=== PATIENT | female | born 1935 | race African-American/Black ===

== ENCOUNTER 2017-06-21 03:45 | Emergency (ER) | payer OTHER, MEDICAID ==
[~2017-06-21] VITALS: Ht 167.6 cm; Wt 77.1 kg
[2017-06-21 04:41] LABS: Basophils # (auto) 0 uL; Basophils % (auto) 0.5 % (0.0-2.0); Eosinophils # (auto) 0.2 uL; Hematocrit 32.8 % (36.0-46.0); Hemoglobin 10.7 g/dL (12.2-16.2); Lymphocytes # (auto) 1.5 uL; Lymphocytes % (auto) 17.9 % (10.0-50.0); Mean Corpuscular Hemoglobin 29.7 pg (28.0-32.0); Mean Corpuscular Hgb Conc. 32.5 g/dL (32.0-36.0); Mean Corpuscular Volume 91.3 fL (80.0-100.0); Monocytes # (auto) 0.7 uL; Monocytes % (auto) 8.1 % (0.0-12.0); Neutrophils # (auto) 5.9 uL; Neutrophils % (auto) 70.5 % (37.0-80.0); Platelet Count (auto) 181 10^3/uL (140-450); Red Blood Cells 3.59 10^6/uL (4.0-5.20); Red Cell Distribution Width 14.8 % (11.8-14.3); White Blood Cell 8.4 10^3/uL (4.4-10.8)
[2017-06-21 04:57] LABS: INR 1.16 (0.9-1.15); Partial Thromboplastin Time 46.1 sec (22.64-33.71); Prothrombin Time 12.7 sec (9.37-12.3)
[2017-06-21 05:00] LABS: Albumin 3.5 g/dL (3.4-5.0); BUN/Creatinine Ratio 24.4; Bilirubin, Total 0.3 mg/dL (0.2-1.0); Calcium 8.7 mg/dL (8.5-10.1); Magnesium 2.2 mg/dL (1.6-2.6); Potassium 4.3 mmol/L (3.5-5.1); Total Protein 7.5 g/dL (6.4-8.2)
[2017-06-21 05:06] LABS: Urine Bacteria FEW /hpf (None Seen); Urine Blood TRACE /uL (Negative); Urine Hyaline Cast FEW /lpf (0 - 2); Urine Specific Gravity 1.008 (1.001-1.035); Urine WBC 6 /hpf (0 - 5)
[2017-06-21] MEDS ORDERED: MET50T PO (07:51)
[2017-06-21] MEDS ORDERED: METF-370 PO (07:51)
[2017-06-21] MEDS ORDERED: BACL20TA PO (07:52)
[2017-06-21] MEDS ORDERED: ATOR1TAB PO (07:53)
[2017-06-21] MEDS ORDERED: HYDR12.56 PO (07:53)
[2017-06-21] MEDS ORDERED: POTA1TAB4 PO (07:54)
[2017-06-21] MEDS ORDERED: ASPI-231 PO (07:55)
[2017-06-21] MEDS ORDERED: OMEP20TA PO (07:55)
[2017-06-21] MEDS ORDERED: cloNIDine HCL 0.1 MG TAB PO ONE (08:15)
[2017-06-21] MEDS ORDERED: FUROSEMIDE 20 MG/2 ML VIAL IV ONE (08:45)
[2017-06-21] MEDS ORDERED: METOPROLOL TARTRATE 25 MG TAB PO ONE (08:45)
[2017-06-21] MEDS ORDERED: ASPirin 81 mg TAB PO ONE (10:45)
[2017-06-21] MEDS ORDERED: cefTRIAXone 1GM/10ml IVPUSH 10 ML IV ONE (10:45)
[2017-06-21 15:47] VITALS: BP 151/72
== END 2017-06-21 16:35 | disposition short-term general hospital (02) ==
LOC: ER 03:45
DX: I11.0 Hypertensive heart disease with heart failure (principal); I50.9 Heart failure, unspecified; R74.8 Abnormal levels of other serum enzymes; Z95.0 Presence of cardiac pacemaker; Z79.899 Other long term (current) drug therapy
CPT/HCPCS: 36415; 71045; 80053; 81001; 83735; 83880; 84443; 84484; 85025; 85610; 85730; 93005; 96374; 96375; 99291; J1940

== ENCOUNTER 2017-07-03 13:12 | Emergency (ER) | payer OTHER, MEDICAID ==
[~2017-07-03] VITALS: Ht 154.9 cm; Wt 66.2 kg
[~2017-07-03 13:12] MED LIST: ASPI-231 PO; ATOR1TAB PO; BACL20TA PO; HYDR12.56 PO; MET50T PO; METF-370 PO; OMEP20TA PO; POTA1TAB4 PO
[2017-07-03 14:56] LABS: Basophils # (auto) 0 uL; Basophils % (auto) 0.5 % (0.0-2.0); Eosinophils # (auto) 0.4 uL; Eosinophils % (auto) 6.2 % (0.0-7.0); Hematocrit 34.2 % (36.0-46.0); Hemoglobin 11.2 g/dL (12.2-16.2); Lymphocytes # (auto) 0.9 uL; Lymphocytes % (auto) 16.3 % (10.0-50.0); Mean Corpuscular Hemoglobin 29.6 pg (28.0-32.0); Mean Corpuscular Hgb Conc. 32.7 g/dL (32.0-36.0); Mean Corpuscular Volume 90.5 fL (80.0-100.0); Monocytes # (auto) 0.6 uL; Monocytes % (auto) 10.4 % (0.0-12.0); Neutrophils # (auto) 3.7 uL; Neutrophils % (auto) 66.6 % (37.0-80.0); Platelet Count (auto) 186 10^3/uL (140-450); Red Blood Cells 3.78 10^6/uL (4.0-5.20); Red Cell Distribution Width 14.7 % (11.8-14.3); White Blood Cell 5.6 10^3/uL (4.4-10.8)
[2017-07-03 15:19] LABS: Albumin 3.8 g/dL (3.4-5.0); BUN/Creatinine Ratio 20.7; Calcium 9.1 mg/dL (8.5-10.1); Potassium 4.5 mmol/L (3.5-5.1)
[2017-07-03 15:24] LABS: Bilirubin, Total 0.3 mg/dL (0.2-1.0); Total Protein 8.4 g/dL (6.4-8.2)
[2017-07-03] MEDS ORDERED: METOCLOPRAMIDE HCL 5MG/ml INJ 2ml VIAL IV ONE (15:30)
[2017-07-03 16:05] LABS: INR 1.05 (0.9-1.15); Partial Thromboplastin Time 46.9 sec (22.64-33.71); Prothrombin Time 11.5 sec (9.37-12.3)
[2017-07-03 20:35] VITALS: BP 156/65
== END 2017-07-03 20:51 | disposition short-term general hospital (02) ==
LOC: ER 13:15
DX: R79.89 Other specified abnormal findings of blood chemistry (principal); R00.2 Palpitations; R53.1 Weakness; E87.8 Other disorders of electrolyte and fluid balance, not elsewhere classified; J45.909 Unspecified asthma, uncomplicated; I10 Essential (primary) hypertension; E11.9 Type 2 diabetes mellitus without complications; E78.5 Hyperlipidemia, unspecified; E07.9 Disorder of thyroid, unspecified; Z79.82 Long term (current) use of aspirin; Z95.0 Presence of cardiac pacemaker
CPT/HCPCS: 36415; 71046; 80053; 83735; 84484; 85025; 85610; 85730; 93005; 94761; 96374; 99291; J2765

== ENCOUNTER 2017-07-20 01:41 | Emergency (ER) | payer OTHER, MEDICAID ==
[~2017-07-20] VITALS: Ht 160 cm; Wt 72.6 kg
[2017-07-20 02:40] LABS: Basophils # (auto) 0 uL; Basophils % (auto) 0.4 % (0.0-2.0); Eosinophils # (auto) 0.2 uL; Eosinophils % (auto) 2.1 % (0.0-7.0); Hematocrit 32.7 % (36.0-46.0); Hemoglobin 10.6 g/dL (12.2-16.2); Lymphocytes # (auto) 1.3 uL; Lymphocytes % (auto) 15.5 % (10.0-50.0); Mean Corpuscular Hemoglobin 29.3 pg (28.0-32.0); Mean Corpuscular Hgb Conc. 32.5 g/dL (32.0-36.0); Mean Corpuscular Volume 90.2 fL (80.0-100.0); Monocytes # (auto) 0.6 uL; Monocytes % (auto) 7.1 % (0.0-12.0); Neutrophils # (auto) 6.4 uL; Neutrophils % (auto) 74.9 % (37.0-80.0); Platelet Count (auto) 166 10^3/uL (140-450); Red Blood Cells 3.62 10^6/uL (4.0-5.20); Red Cell Distribution Width 14.6 % (11.8-14.3); White Blood Cell 8.5 10^3/uL (4.4-10.8)
[2017-07-20 03:04] LABS: Albumin 3.3 g/dL (3.4-5.0); Calcium 9.2 mg/dL (8.5-10.1); Potassium 3.9 mmol/L (3.5-5.1)
[2017-07-20 03:06] LABS: BUN/Creatinine Ratio 22.4
[2017-07-20 03:11] LABS: Bilirubin, Total 0.2 mg/dL (0.2-1.0); Total Protein 7.6 g/dL (6.4-8.2)
[2017-07-20] MEDS ORDERED: IOHEXOL 300 MG/ML 100ML BOTTLE IJ ONE (03:47)
[2017-07-20 04:03] LABS: Urine Bacteria NONE SEEN /hpf (None Seen); Urine Blood Negative /uL (Negative); Urine Specific Gravity 1.012 (1.001-1.035); Urine WBC 1 /hpf (0 - 5)
[2017-07-20] MEDS ORDERED: KETOROLAC TROMETH 30 MG/ML 1ML VIAL IV ONE (04:45)
[2017-07-20 09:06] VITALS: BP 145/74
== END 2017-07-20 09:12 | disposition short-term general hospital (02) ==
LOC: ER 01:41 → EDBD 01:41 → ER 09:12
DX: R00.2 Palpitations (principal); N39.0 Urinary tract infection, site not specified; R79.89 Other specified abnormal findings of blood chemistry; J45.909 Unspecified asthma, uncomplicated; I10 Essential (primary) hypertension; E11.9 Type 2 diabetes mellitus without complications; R06.02 Shortness of breath; E78.5 Hyperlipidemia, unspecified; Z79.82 Long term (current) use of aspirin; Z95.0 Presence of cardiac pacemaker; Z95.2 Presence of prosthetic heart valve
CPT/HCPCS: 36415; 71045; 74177; 80053; 81001; 83735; 83880; 84484; 85025; 93005; 94761; 96374; 99285; J1885; Q9967

== ENCOUNTER 2017-07-28 04:54 | Emergency (ER) | payer OTHER, MEDICAID ==
[~2017-07-28] VITALS: Ht 162.6 cm; Wt 68.0 kg
[2017-07-28 07:04] LABS: Basophils # (auto) 0 uL; Basophils % (auto) 0.5 % (0.0-2.0); Eosinophils # (auto) 0 uL; Eosinophils % (auto) 0.6 % (0.0-7.0); Hematocrit 35.6 % (36.0-46.0); Hemoglobin 11.7 g/dL (12.2-16.2); Lymphocytes # (auto) 0.7 uL; Mean Corpuscular Hemoglobin 29.7 pg (28.0-32.0); Mean Corpuscular Hgb Conc. 32.8 g/dL (32.0-36.0); Mean Corpuscular Volume 90.6 fL (80.0-100.0); Monocytes # (auto) 0.3 uL; Monocytes % (auto) 5.1 % (0.0-12.0); Neutrophils # (auto) 5.7 uL; Neutrophils % (auto) 83.8 % (37.0-80.0); Platelet Count (auto) 213 10^3/uL (140-450); Red Blood Cells 3.93 10^6/uL (4.0-5.20); Red Cell Distribution Width 14.8 % (11.8-14.3); White Blood Cell 6.8 10^3/uL (4.4-10.8)
[2017-07-28 07:20] VITALS: BP 178/92
[2017-07-28] MEDS ORDERED: HYDROcodone-ACET 10/325MG TAB PO ONE (08:00)
[2017-07-28] MEDS ORDERED: cloNIDine HCL 0.1 MG TAB PO ONE (08:00)
[2017-07-28 08:04] LABS: Urine Bacteria FEW /hpf (None Seen); Urine Blood Negative /uL (Negative); Urine Specific Gravity 1.009 (1.001-1.035); Urine WBC 4 /hpf (0 - 5)
[2017-07-28 09:02] LABS: Albumin 3.5 g/dL (3.4-5.0); BUN/Creatinine Ratio 14.4; Bilirubin, Total 0.3 mg/dL (0.2-1.0); Calcium 8.9 mg/dL (8.5-10.1); Potassium 3.8 mmol/L (3.5-5.1); Total Protein 7.8 g/dL (6.4-8.2)
== END 2017-07-28 08:41 | disposition home or self-care (01) ==
LOC: ER 04:54 → EDBD 04:54 → ER 08:41
DX: I10 Essential (primary) hypertension (principal); N39.0 Urinary tract infection, site not specified; J45.909 Unspecified asthma, uncomplicated; E11.9 Type 2 diabetes mellitus without complications; E78.5 Hyperlipidemia, unspecified; E07.9 Disorder of thyroid, unspecified; Z95.0 Presence of cardiac pacemaker; Z79.899 Other long term (current) drug therapy
CPT/HCPCS: 36415; 80053; 81001; 84484; 85025

== ENCOUNTER 2017-07-31 03:04 | Inpatient (IN) | payer OTHER, MEDICAID ==
[~2017-07-31] VITALS: Ht 165.1 cm; Wt 68.4 kg
[2017-07-31] MEDS ORDERED: LABETALOL HCL 5 MG/ML ML 20ML VIAL IV ONE ×2 (04:15→05:30)
[2017-07-31] MEDS ORDERED: ASPirin 325 MG TAB PO ONE (04:15)
[2017-07-31 04:21] LABS: Basophils # (auto) 0 uL; Basophils % (auto) 0.3 % (0.0-2.0); Eosinophils # (auto) 0.2 uL; Eosinophils % (auto) 2.4 % (0.0-7.0); Hemoglobin 11.7 g/dL (12.2-16.2); Lymphocytes # (auto) 1.3 uL; Lymphocytes % (auto) 20.5 % (10.0-50.0); Mean Corpuscular Hemoglobin 29.6 pg (28.0-32.0); Mean Corpuscular Hgb Conc. 32.5 g/dL (32.0-36.0); Mean Corpuscular Volume 91.1 fL (80.0-100.0); Monocytes # (auto) 0.7 uL; Monocytes % (auto) 10.4 % (0.0-12.0); Neutrophils # (auto) 4.4 uL; Neutrophils % (auto) 66.4 % (37.0-80.0); Nucleated Red Blood Cells % 0.1 %; Platelet Count (auto) 235 10^3/uL (140-450); Red Blood Cells 3.95 10^6/uL (4.0-5.20); Red Cell Distribution Width 15.1 % (11.8-14.3); White Blood Cell 6.6 10^3/uL (4.4-10.8)
[2017-07-31 04:39] LABS: Albumin 3.6 g/dL (3.4-5.0); BUN/Creatinine Ratio 15.9; Potassium 3.7 mmol/L (3.5-5.1)
[2017-07-31 04:43] LABS: Bilirubin, Total 0.2 mg/dL (0.2-1.0); Total Protein 7.9 g/dL (6.4-8.2)
[2017-07-31] MEDS ORDERED: ONDANSETRON HCL 4 MG/2 ML VIAL IV ONE (06:15)
[2017-07-31] MEDS ORDERED: hydrALAZINE HCL 20 MG/ML VL IV ONE (07:15)
[2017-07-31] MEDS ORDERED: cloNIDine HCL 0.1 MG TAB PO ONE (07:30)
[2017-07-31] MEDS ORDERED: POTASSIUM CHL 20 Meq TABLET PO ONE (10:45)
[2017-07-31] MEDS ORDERED: ALUM & MAG HYDROX-SIMETH LIQ(MAALOX) 30 ML PO ONE (10:45)
[2017-07-31] MEDS ORDERED: HCTZ 25 MG TAB PO ONE (10:45)
[2017-07-31] MEDS ORDERED: NITROGLYCERIN 0.4 MG SL TAB SL PRN ×2 (10:45)
[2017-07-31] MEDS ORDERED: DEXTROSE (50%) 50ML SYRG IV PRN (10:45)
[2017-07-31] MEDS ORDERED: ZOLPIDEM TARTRATE 5 MG TAB PO PRN (10:45)
[2017-07-31] MEDS ORDERED: ACETAMINOPHEN 325 MG TAB PO PRN (10:45)
[2017-07-31] MEDS ORDERED: PANTOPRAZOLE 40 MG TAB PO ONE (10:45)
[2017-07-31] MEDS ORDERED: MORPHINE SULF(PF) 0.5MG/ML 10ML VIAL IV PRN ×2 (10:45)
[2017-07-31] MEDS ORDERED: ONDANSETRON HCL 4 MG/2 ML VIAL IV PRN (10:45)
[2017-07-31] MEDS ORDERED: LORazepam 0.5 MG TAB PO PRN (10:45)
[2017-07-31] MEDS: METOPROLOL TARTRATE 50 MG TAB PO SCH ×3 (11:00→22:11)
[2017-07-31 11:11] LABS: INR 1.12 (0.9-1.15); Prothrombin Time 11.9 sec (9.27-12.13)
[2017-07-31] MEDS: ENALAPRIL MALEATE 2.5 MG TAB PO SCH ×2 (11:15→22:11)
[2017-07-31] MEDS: CLOPIDOGREL BISULFATE 75 MG TAB PO SCH (11:23)
[2017-07-31] MEDS: DABIGATRAN 75 MG CAP PO SCH ×2 (11:23→22:10)
[2017-07-31] MEDS: SULFAMETHOX W/TRIMETH(800/160MG) DS TAB PO SCH (11:23)
[2017-07-31] MEDS: InsuLIN REG 1unit/0.01ml Soln (100units/ml) SC SCH ×3 (11:53→22:14)
[2017-07-31] MEDS: SODIUM CHLOR 0.9% PF (SALINE LOCK) 10ML VIAL/SYR IV SCH ×2 (11:53→22:12)
[2017-07-31] MEDS: ACCU-CHEK COMFORT CURVE STRIP VI SCH ×3 (11:53→22:12)
[2017-07-31] MEDS ORDERED: SODIUM CHLORIDE 0.9% 1,000 ML IV ONE (12:15)
[2017-07-31] MEDS ORDERED: NOREPINEPHRINE 8 MG/250ML KIT 250 ML IV SCH (13:08)
[2017-07-31 22:00] VITALS: BP 143/64
[2017-07-31] MEDS: ATORVASTATIN 20 MG TAB PO SCH (22:11)
[2017-08-01 05:00] VITALS: BP 102/63
[2017-08-01] MEDS: SODIUM CHLOR 0.9% PF (SALINE LOCK) 10ML VIAL/SYR IV SCH ×3 (06:24→22:03)
[2017-08-01] MEDS: ACCU-CHEK COMFORT CURVE STRIP VI SCH ×4 (06:24→22:05)
[2017-08-01] MEDS: InsuLIN REG 1unit/0.01ml Soln (100units/ml) SC SCH ×4 (06:25→22:05)
[2017-08-01 06:51] LABS: Basophils # (auto) 0 uL; Basophils % (auto) 0.4 % (0.0-2.0); Eosinophils # (auto) 0.3 uL; Eosinophils % (auto) 4.1 % (0.0-7.0); Hematocrit 29.1 % (36.0-46.0); Hemoglobin 9.5 g/dL (12.2-16.2); Lymphocytes # (auto) 1.4 uL; Lymphocytes % (auto) 21.4 % (10.0-50.0); Mean Corpuscular Hemoglobin 29.8 pg (28.0-32.0); Mean Corpuscular Hgb Conc. 32.8 g/dL (32.0-36.0); Mean Corpuscular Volume 90.8 fL (80.0-100.0); Monocytes # (auto) 0.6 uL; Monocytes % (auto) 9.1 % (0.0-12.0); Neutrophils # (auto) 4.1 uL; Nucleated Red Blood Cells % 0.1 %; Platelet Count (auto) 196 10^3/uL (140-450); Red Cell Distribution Width 15.2 % (11.8-14.3); White Blood Cell 6.3 10^3/uL (4.4-10.8)
[2017-08-01 07:11] LABS: Albumin 2.7 g/dL (3.4-5.0); BUN/Creatinine Ratio 14.4; Bilirubin, Total 0.2 mg/dL (0.2-1.0); Calcium 7.9 mg/dL (8.5-10.1); Magnesium 2.2 mg/dL (1.6-2.6); Potassium 4.7 mmol/L (3.5-5.1); Total Protein 5.9 g/dL (6.4-8.2)
[2017-08-01 08:30] VITALS: BP 122/54
[2017-08-01] MEDS: HCTZ 25 MG TAB PO SCH (10:49)
[2017-08-01] MEDS: METOPROLOL TARTRATE 50 MG TAB PO SCH ×2 (10:49→22:04)
[2017-08-01] MEDS: PANTOPRAZOLE 40 MG TAB PO SCH (10:49)
[2017-08-01] MEDS: DABIGATRAN 75 MG CAP PO SCH ×2 (10:49→22:04)
[2017-08-01] MEDS: SULFAMETHOX W/TRIMETH(800/160MG) DS TAB PO SCH (10:50)
[2017-08-01] MEDS: ASPirin 81 mg TAB PO SCH (10:50)
[2017-08-01] MEDS: POTASSIUM CHL 20 Meq TABLET PO SCH (10:50)
[2017-08-01] MEDS: CLOPIDOGREL BISULFATE 75 MG TAB PO SCH (10:50)
[2017-08-01] MEDS: DOCUSATE SOD 100 MG CAP PO SCH (10:50)
[2017-08-01 12:30] VITALS: BP 134/69
[2017-08-01] MEDS: ENALAPRIL MALEATE 2.5 MG TAB PO SCH ×2 (12:55→22:04)
[2017-08-01 16:49] VITALS: BP 137/83
[2017-08-01 22:00] VITALS: BP 158/69
[2017-08-01] MEDS: ATORVASTATIN 20 MG TAB PO SCH (22:03)
[2017-08-02 05:00] VITALS: BP 170/77
[2017-08-02] MEDS: ENALAPRIL MALEATE 2.5 MG TAB PO SCH ×2 (05:19→21:56)
[2017-08-02] MEDS: InsuLIN REG 1unit/0.01ml Soln (100units/ml) SC SCH ×4 (06:01→22:00)
[2017-08-02] MEDS: SODIUM CHLOR 0.9% PF (SALINE LOCK) 10ML VIAL/SYR IV SCH ×3 (06:01→22:04)
[2017-08-02] MEDS: ACCU-CHEK COMFORT CURVE STRIP VI SCH ×4 (06:02→22:01)
[2017-08-02 06:33] LABS: Basophils # (auto) 0 uL; Basophils % (auto) 0.4 % (0.0-2.0); Eosinophils # (auto) 0.3 uL; Eosinophils % (auto) 3.7 % (0.0-7.0); Hemoglobin 11.9 g/dL (12.2-16.2); Lymphocytes # (auto) 1.7 uL; Lymphocytes % (auto) 21.9 % (10.0-50.0); Mean Corpuscular Hemoglobin 29.6 pg (28.0-32.0); Mean Corpuscular Hgb Conc. 31.5 g/dL (32.0-36.0); Mean Corpuscular Volume 94.1 fL (80.0-100.0); Monocytes # (auto) 0.6 uL; Neutrophils # (auto) 5.1 uL; Nucleated Red Blood Cells % 0.1 %; Platelet Count (auto) 216 10^3/uL (140-450); Red Blood Cells 4.03 10^6/uL (4.0-5.20); Red Cell Distribution Width 15.4 % (11.8-14.3); White Blood Cell 7.8 10^3/uL (4.4-10.8)
[2017-08-02 06:47] LABS: Chloride 114 mmol/L (98-107); Potassium 4.6 mmol/L (3.5-5.1); Sodium 144 mmol/L (136-145)
[2017-08-02 06:56] LABS: Albumin 2.9 g/dL (3.4-5.0); Anion Gap 10 (5-15); BUN/Creatinine Ratio 19.4; Blood Urea Nitrogen 20 mg/dL (7-18); Calcium 8.5 mg/dL (8.5-10.1); Carbon Dioxide 20 mmol/L (21-32); GFR African American 66 mL/min; GFR Non-African American 55 mL/min; Glucose 79 mg/dL (74-106)
[2017-08-02 07:02] LABS: Alanine Aminotransferase 18 U/L (13-56); Alkaline Phosphatase 72 U/L (45-117); Aspartate Aminotransferase 25 U/L (15-37); Bilirubin, Total 0.3 mg/dL (0.2-1.0)
[2017-08-02 09:00] VITALS: BP 198/67
[2017-08-02 09:34] LABS: Urine Bacteria NONE SEEN /hpf (None Seen); Urine Blood Negative /uL (Negative); Urine Specific Gravity 1.005 (1.001-1.035); Urine WBC <1 /hpf (0 - 5)
[2017-08-02] MEDS: DOCUSATE SOD 100 MG CAP PO SCH (10:52)
[2017-08-02] MEDS: ASPirin 81 mg TAB PO SCH (10:52)
[2017-08-02] MEDS: SULFAMETHOX W/TRIMETH(800/160MG) DS TAB PO SCH (10:52)
[2017-08-02] MEDS: HCTZ 25 MG TAB PO SCH (10:54)
[2017-08-02] MEDS: POTASSIUM CHL 20 Meq TABLET PO SCH (10:54)
[2017-08-02] MEDS: CLOPIDOGREL BISULFATE 75 MG TAB PO SCH (10:55)
[2017-08-02] MEDS: DABIGATRAN 75 MG CAP PO SCH ×2 (10:55→21:56)
[2017-08-02] MEDS: PANTOPRAZOLE 40 MG TAB PO SCH (10:55)
[2017-08-02] MEDS: METOPROLOL TARTRATE 50 MG TAB PO SCH ×2 (10:55→21:57)
[2017-08-02 13:00] VITALS: BP 187/88
[2017-08-02 18:02] VITALS: BP 183/83
[2017-08-02] MEDS: ATORVASTATIN 20 MG TAB PO SCH (21:57)
[2017-08-02 22:40] VITALS: BP 180/73
[2017-08-03] MEDS ORDERED: METOPROLOL TARTRATE 1MG/1ML-5ML VIAL IV ONE (01:00)
[2017-08-03 02:00] VITALS: BP 165/70
[2017-08-03 05:06] VITALS: BP 194/84
[2017-08-03] MEDS: METOPROLOL TARTRATE 50 MG TAB PO SCH (06:02)
[2017-08-03] MEDS: HCTZ 25 MG TAB PO SCH (06:02)
[2017-08-03] MEDS: ENALAPRIL MALEATE 2.5 MG TAB PO SCH (06:02)
[2017-08-03] MEDS: InsuLIN REG 1unit/0.01ml Soln (100units/ml) SC SCH ×2 (06:09→11:30)
[2017-08-03] MEDS: ACCU-CHEK COMFORT CURVE STRIP VI SCH ×2 (06:09→11:30)
[2017-08-03] MEDS: SODIUM CHLOR 0.9% PF (SALINE LOCK) 10ML VIAL/SYR IV SCH (06:09)
[2017-08-03] MEDS: SULFAMETHOX W/TRIMETH(800/160MG) DS TAB PO SCH (08:20)
[2017-08-03] MEDS: ASPirin 81 mg TAB PO SCH (08:20)
[2017-08-03] MEDS: DOCUSATE SOD 100 MG CAP PO SCH (08:20)
[2017-08-03] MEDS: POTASSIUM CHL 20 Meq TABLET PO SCH (08:21)
[2017-08-03] MEDS: CLOPIDOGREL BISULFATE 75 MG TAB PO SCH (08:21)
[2017-08-03] MEDS: DABIGATRAN 75 MG CAP PO SCH (08:21)
[2017-08-03] MEDS: PANTOPRAZOLE 40 MG TAB PO SCH (08:22)
[2017-08-03 08:41] VITALS: BP 191/77
[2017-08-03] MEDS ORDERED: HYDROcodone-ACET 5/325MG TAB PO ONE (09:30)
[2017-08-03] MEDS ORDERED: cloNIDine HCL 0.1 MG TAB PO PRN (09:30)
[2017-08-03] MEDS ORDERED: HYDROcodone-ACET 5/325MG TAB PO PRN (09:30)
[2017-08-03] MEDS ORDERED: cloNIDine HCL 0.1 MG TAB PO ONE (09:30)
[2017-08-03 11:40] VITALS: BP 196/92
[2017-08-03 11:48] VITALS: BP 102/61
== END 2017-08-03 14:44 | disposition home or self-care (01) | DRG 291 ==
LOC: EDBD 03:04 → ER 03:12 → TELE 03:13 → TELE-CENTR 14:48
PROVIDERS: ADMIT Internal Medicine; ATTEND Family Medicine
DX: I13.0 Hypertensive heart and chronic kidney disease with heart failure and stage 1 through stage 4 chronic kidney disease, or unspecified chronic kidney disease (principal); I50.43 Acute on chronic combined systolic (congestive) and diastolic (congestive) heart failure; N18.3 Chronic kidney disease, stage 3 (moderate); E03.9 Hypothyroidism, unspecified; E11.21 Type 2 diabetes mellitus with diabetic nephropathy; E11.22 Type 2 diabetes mellitus with diabetic chronic kidney disease; E11.51 Type 2 diabetes mellitus with diabetic peripheral angiopathy without gangrene; E78.00 Pure hypercholesterolemia, unspecified; E78.5 Hyperlipidemia, unspecified; R74.8 Abnormal levels of other serum enzymes; R07.89 Other chest pain; G96.8 Other specified disorders of central nervous system; G89.29 Other chronic pain; M54.9 Dorsalgia, unspecified; J45.909 Unspecified asthma, uncomplicated; Z82.49 Family history of ischemic heart disease and other diseases of the circulatory system; Z83.3 Family history of diabetes mellitus; Z86.73 Personal history of transient ischemic attack (TIA), and cerebral infarction without residual deficits; Z95.0 Presence of cardiac pacemaker; Z95.2 Presence of prosthetic heart valve; Z79.899 Other long term (current) drug therapy; I25.2 Old myocardial infarction
CPT/HCPCS: 36415; 70450; 71045; 80053; 80061; 81001; 82962; 83036; 83735; 83880; 84443; 84484; 85025; 85610; 93005; 93306; 96374; 96375; J1815; J2405

== ENCOUNTER 2017-12-15 07:17 | Emergency (ER) | payer OTHER, MEDICAID ==
[~2017-12-15] VITALS: Ht 165.1 cm; Wt 58.1 kg
[2017-12-15 07:55] LABS: Basophils # (auto) 0.1 uL; Basophils % (auto) 0.6 % (0.0-2.0); Eosinophils # (auto) 0.4 uL; Eosinophils % (auto) 4.1 % (0.0-7.0); Hematocrit 27.1 % (36.0-46.0); Hemoglobin 8.8 g/dL (12.2-16.2); Lymphocytes # (auto) 1.5 uL; Lymphocytes % (auto) 16.4 % (10.0-50.0); Mean Corpuscular Hemoglobin 29.3 pg (28.0-32.0); Mean Corpuscular Hgb Conc. 32.3 g/dL (32.0-36.0); Mean Corpuscular Volume 90.6 fL (80.0-100.0); Monocytes # (auto) 0.6 uL; Neutrophils # (auto) 6.9 uL; Neutrophils % (auto) 72.9 % (37.0-80.0); Platelet Count (auto) 206 10^3/uL (140-450); White Blood Cell 9.4 10^3/uL (4.4-10.8)
[2017-12-15] MEDS ORDERED: SODIUM CHLORIDE 0.9% 1,000 ML IV ONE (08:04)
[2017-12-15 08:11] LABS: Albumin 3.5 g/dL (3.4-5.0); Calcium 8.4 mg/dL (8.5-10.1); Magnesium 2.3 mg/dL (1.6-2.6); Potassium 3.9 mmol/L (3.5-5.1)
[2017-12-15] MEDS ORDERED: ASPirin 81 mg TAB PO ONE (08:15)
[2017-12-15 08:18] LABS: BUN/Creatinine Ratio 23.2; Bilirubin, Total 0.3 mg/dL (0.2-1.0); Total Protein 7.5 g/dL (6.4-8.2)
[2017-12-15 15:39] LABS: Urine Bacteria NONE SEEN /hpf (None Seen); Urine Blood Negative /uL (Negative); Urine Mucus FEW (None Seen); Urine Specific Gravity 1.007 (1.001-1.035); Urine WBC 1 /hpf (0 - 5)
[2017-12-15 18:55] VITALS: BP 145/72
== END 2017-12-15 19:58 | disposition home or self-care (01) ==
LOC: ER 07:17 → EDBD 07:17 → ER 19:56
DX: R07.9 Chest pain, unspecified (principal); E11.21 Type 2 diabetes mellitus with diabetic nephropathy; I12.9 Hypertensive chronic kidney disease with stage 1 through stage 4 chronic kidney disease, or unspecified chronic kidney disease; N18.9 Chronic kidney disease, unspecified; J45.909 Unspecified asthma, uncomplicated; E78.5 Hyperlipidemia, unspecified; E07.9 Disorder of thyroid, unspecified; D64.9 Anemia, unspecified; Z79.82 Long term (current) use of aspirin; Z79.84 Long term (current) use of oral hypoglycemic drugs; Z79.899 Other long term (current) drug therapy; Z95.0 Presence of cardiac pacemaker
CPT/HCPCS: 36415; 71046; 80053; 81001; 82962; 83735; 83880; 84443; 84484; 85025; 93005; 94761; 99285; J7030

== ENCOUNTER 2018-01-02 12:33 | Emergency (ER) | payer OTHER, MEDICAID ==
[~2018-01-02] VITALS: Ht 167.6 cm; Wt 63.5 kg
[2018-01-02] MEDS ORDERED: SODIUM CHLORIDE 0.9% 1,000 ML IV ONE (13:41)
[2018-01-02] MEDS ORDERED: LEVOFLOXACIN 500 MG/100 ML PREMIX BAG IV ONE (13:45)
[2018-01-02 14:10] LABS: Eosinophils # (auto) 0.4 uL; Hemoglobin 7.4 g/dL (12.2-16.2); Lymphocytes # (auto) 1.9 uL
[2018-01-02 14:12] LABS: Basophils # (auto) 0.1 uL; Basophils % (auto) 1.3 % (0.0-2.0); Eosinophils % (auto) 4.7 % (0.0-7.0); Hematocrit 23.1 % (36.0-46.0); Lymphocytes % (auto) 23.9 % (10.0-50.0); Mean Corpuscular Hgb Conc. 32.2 g/dL (32.0-36.0); Monocytes # (auto) 0.6 uL; Monocytes % (auto) 8.1 % (0.0-12.0); Nucleated Red Blood Cells % 0.1 %; Platelet Count (auto) 221 10^3/uL (140-450); Red Blood Cells 2.57 10^6/uL (4.0-5.20); Red Cell Distribution Width 14.9 % (11.8-14.3); White Blood Cell 8.1 10^3/uL (4.4-10.8)
[2018-01-02 14:44] LABS: Albumin 3.6 g/dL (3.4-5.0); Calcium 8.7 mg/dL (8.5-10.1); Potassium 4.7 mmol/L (3.5-5.1)
[2018-01-02 14:50] LABS: BUN/Creatinine Ratio 30.7; Bilirubin, Total 0.2 mg/dL (0.2-1.0); Total Protein 7.3 g/dL (6.4-8.2)
[2018-01-02 15:18] LABS: Urine Bacteria FEW /hpf (None Seen); Urine Blood Negative /uL (Negative); Urine Specific Gravity 1.009 (1.001-1.035); Urine WBC 1 /hpf (0 - 5)
[2018-01-02 15:26] LABS: Alcohol, Urine < 3.0 mg/dL (0-5); Amphetamine Screen, Urine NEGATIVE (NEGATIVE); Barbiturate Scree,Urine NEGATIVE (NEGATIVE); Benzodiazephine Screen, Urine NEGATIVE (NEGATIVE); Cannabinoid Screen, Urine NEGATIVE (NEGATIVE); Cocaine Screen, Urine NEGATIVE (NEGATIVE); Opiate Scree,Urine NEGATIVE (NEGATIVE); Phencyclidine Screen, Urine NEGATIVE (NEGATIVE)
[2018-01-02] MEDS ORDERED: KEP500T PO (15:31)
[2018-01-02] MEDS ORDERED: HCTZ25T PO (15:31)
[2018-01-02] MEDS ORDERED: DABI75CA3 PO (15:31)
[2018-01-02] MEDS ORDERED: FURO20TA3 PO (15:31)
[2018-01-02 17:23] LABS: Blood Alcohol < 3.0 mg/dL (0-5); Magnesium 2.4 mg/dL (1.6-2.6)
[2018-01-02 18:59] VITALS: BP 170/58
== END 2018-01-02 19:30 | disposition short-term general hospital (02) ==
LOC: EDUNIT# 12:33 → ER 12:33 → EDBD 12:33 → ER 18:59
DX: R41.82 Altered mental status, unspecified (principal); D64.9 Anemia, unspecified; J45.909 Unspecified asthma, uncomplicated; E11.9 Type 2 diabetes mellitus without complications; E78.5 Hyperlipidemia, unspecified; I10 Essential (primary) hypertension; E07.9 Disorder of thyroid, unspecified; Z95.0 Presence of cardiac pacemaker; Z79.82 Long term (current) use of aspirin; Z79.84 Long term (current) use of oral hypoglycemic drugs
CPT/HCPCS: 36415; 51702; 70450; 71045; 80053; 80307; 80320; 81001; 83605; 83735; 84484; 85025; 87040; 93005; 94761; 96361; 96374; 99285; J1956; J7030

== ENCOUNTER 2018-03-04 13:01 | Emergency (ER) | payer OTHER, MEDICAID ==
[~2018-03-04] VITALS: Ht 162.6 cm; Wt 68.0 kg
[~2018-03-04 13:01] MED LIST changes: +DABI75CA3 PO; +FURO20TA3 PO; +HCTZ25T PO; -HYDR12.56 PO; +KEP500T PO
[2018-03-04] MEDS ORDERED: SODIUM CHLORIDE 0.9% 1,000 ML IV ONE (13:12)
[2018-03-04 14:29] LABS: Basophils # (auto) 0.1 uL; Monocytes # (auto) 0.7 uL; Red Cell Distribution Width 17.5 % (11.8-14.3)
[2018-03-04 14:31] LABS: Basophils % (auto) 0.8 % (0.0-2.0); Eosinophils # (auto) 0.4 uL; Eosinophils % (auto) 5.6 % (0.0-7.0); Hematocrit 30.5 % (36.0-46.0); Hemoglobin 9.6 g/dL (12.2-16.2); Lymphocytes % (auto) 13.2 % (10.0-50.0); Mean Corpuscular Hemoglobin 26.5 pg (28.0-32.0); Mean Corpuscular Hgb Conc. 31.4 g/dL (32.0-36.0); Mean Corpuscular Volume 84.6 fL (80.0-100.0); Monocytes % (auto) 9.2 % (0.0-12.0); Neutrophils # (auto) 5.2 uL; Neutrophils % (auto) 71.2 % (37.0-80.0); Platelet Count (auto) 289 10^3/uL (140-450); White Blood Cell 7.4 10^3/uL (4.4-10.8)
[2018-03-04 14:44] LABS: INR 1.08 (0.9-1.15); Partial Thromboplastin Time 49.9 sec (23.78-33.04); Prothrombin Time 11.5 sec (9.27-12.13)
[2018-03-04 14:47] LABS: Urine Bacteria FEW /hpf (None Seen); Urine Blood Negative /uL (Negative); Urine Specific Gravity 1.003 (1.001-1.035); Urine WBC <1 /hpf (0 - 5)
[2018-03-04 14:47] LABS: Alanine Aminotransferase 25 U/L (13-56); Albumin 3.3 g/dL (3.4-5.0); Anion Gap 9 (5-15); Aspartate Aminotransferase 37 U/L (15-37); BUN/Creatinine Ratio 23.9; Blood Urea Nitrogen 21 mg/dL (7-18); Calcium 8.8 mg/dL (8.5-10.1); Carbon Dioxide 24 mmol/L (21-32); Chloride 108 mmol/L (98-107); GFR African American > 60 mL/min; GFR Non-African American > 60 mL/min; Glucose 131 mg/dL (74-106); Potassium 4.3 mmol/L (3.5-5.1); Sodium 141 mmol/L (136-145)
[2018-03-04 14:51] LABS: Alkaline Phosphatase 81 U/L (45-117); Bilirubin, Total < 0.1 mg/dL (0.2-1.0); Total Protein 7.5 g/dL (6.4-8.2)
[2018-03-04] MEDS ORDERED: ASPirin 81 mg TAB PO ONE (15:30)
[2018-03-04] MEDS ORDERED: ENOXAPARIN SOD 60 MG/0.6 ML SYRINGE SC ONE (15:30)
[2018-03-04 18:27] VITALS: BP 145/76
== END 2018-03-04 19:50 | disposition short-term general hospital (02) ==
LOC: EDBD 13:01 → EDUNIT# 13:01 → ER 13:16
DX: G93.41 Metabolic encephalopathy (principal); R79.89 Other specified abnormal findings of blood chemistry; I48.91 Unspecified atrial fibrillation; J45.909 Unspecified asthma, uncomplicated; E11.9 Type 2 diabetes mellitus without complications; E78.5 Hyperlipidemia, unspecified; I10 Essential (primary) hypertension; E07.9 Disorder of thyroid, unspecified; Z79.84 Long term (current) use of oral hypoglycemic drugs; Z79.899 Other long term (current) drug therapy; Z86.73 Personal history of transient ischemic attack (TIA), and cerebral infarction without residual deficits
CPT/HCPCS: 36415; 51702; 70450; 71045; 74176; 80053; 81001; 83605; 83880; 84484; 85025; 85610; 85730; 87040; 87077; 87086; 87088; 87186; 93005; 96372; 99285; J1650

== ENCOUNTER 2018-04-30 13:15 | Inpatient (IN) | payer OTHER, MEDICAID ==
[~2018-04-30] VITALS: Ht 162.6 cm; Wt 73.2 kg
[2018-04-30] MEDS ORDERED: SODIUM CHLORIDE 0.9% 1,000 ML IV ONE (13:40)
[2018-04-30 14:09] LABS: Basophils # (auto) 0 uL; Basophils % (auto) 0.4 % (0.0-2.0); Eosinophils # (auto) 0.3 uL; Hematocrit 36.3 % (36.0-46.0); Hemoglobin 11.6 g/dL (12.2-16.2); Lymphocytes # (auto) 0.8 uL; Lymphocytes % (auto) 7.3 % (10.0-50.0); Mean Corpuscular Hemoglobin 28.4 pg (28.0-32.0); Mean Corpuscular Volume 88.6 fL (80.0-100.0); Monocytes # (auto) 0.7 uL; Monocytes % (auto) 6.6 % (0.0-12.0); Neutrophils % (auto) 82.7 % (37.0-80.0); Platelet Count (auto) 186 10^3/uL (140-450); Red Cell Distribution Width 18.8 % (11.8-14.3); White Blood Cell 10.8 10^3/uL (4.4-10.8)
[2018-04-30 14:26] LABS: INR 1.09 (0.9-1.15); Prothrombin Time 11.6 sec (9.27-12.13)
[2018-04-30 14:38] LABS: Calcium 7.4 mg/dL (8.5-10.1); Magnesium 1.5 mg/dL (1.6-2.6); Potassium 4.3 mmol/L (3.5-5.1)
[2018-04-30 14:43] LABS: Bilirubin, Total 0.3 mg/dL (0.2-1.0); Total Protein 6.1 g/dL (6.4-8.2)
[2018-04-30] MEDS ORDERED: MORPHINE SULF INJ 2 MG/ML SYRINGE 1ML IV ONE (17:15)
[2018-04-30] MEDS ORDERED: ONDANSETRON HCL 4 MG/2 ML VIAL IV ONE (17:15)
[2018-04-30] MEDS ORDERED: ACETAMINOPHEN 500 MG TAB PO PRN (17:45)
[2018-04-30] MEDS ORDERED: MORPHINE SULF INJ 2 MG/ML SYRINGE 1ML IV PRN ×2 (17:45)
[2018-04-30] MEDS ORDERED: NITROGLYCERIN 0.4 MG SL TAB SL PRN (17:45)
[2018-04-30] MEDS ORDERED: NITROGLYCERIN 0.2MG/HR TOPICAL PATCH TD ONE (17:45)
[2018-04-30] MEDS ORDERED: DEXTROSE (50%) 50ML SYRG IV PRN (18:30)
[2018-04-30] MEDS: SODIUM CHLORIDE 0.9% 1,000 ML IV SCH (18:40)
[2018-04-30 22:00] VITALS: BP 139/75
[2018-04-30] MEDS: InsuLIN REG 1unit/0.01ml Soln (100units/ml) SC SCH (22:00)
--- NOTE | 2018-04-30 22:00 | NUR ---
Telemetry admit from ER AMADEO GRULLON admitted to Telemetry unit after SBAR received. Patient oriented to MICHAEL KYLE, primary RN, unit, room, bed, and unit policies regarding patient care and visiting hours. Patient now on continuous telemetry monitoring, tele box # 9 and telemetry reading on arrival to unit is NSR. Patient weighed by bedscale and encouraged to call if they need something. All questions and concerns addressed, patient verbalized understanding. Note:
--- NOTE | 2018-05-01 | NUR ---
PHOTOS TAKEN OF WOUNDS/SKIN CARE PHOTOS TAKEN OF WOUNDS TO LEFT HEEL, RIGHT UPPER ARM, SACRUM/BUTTOCKS, AND INNER THIGHS. PATIENT WAS WEARING DEPENDS TYPE UNDERWEAR AND WAS INCONTINENT OF BOTH BOWEL AND URINE. SKIN CLEANSED WITH SOAP AND WATER; BARRIER CREAM APPLIED TO EMPERATRIZ AREA; OPTIFOAM DRESSING TO SACRUM; AND BL FOAM BOOTS. PATIENT PLACED ON Q2 TURN SCHEDULE. WOUND CONSULT IN PLACED. WILL REQUEST SPECIALTY MATTRESS.
--- NOTE | 2018-05-01 00:05 | NUR ---
CULTURE OF WOUNDS AND GREEN COLORED VAGINAL DISCHARGE OBTAINED AND SENT TO LAB.
[2018-05-01] MEDS: PANTOPRAZOLE 40 MG/10 ML VIAL IV SCH ×3 (00:14→21:12)
--- NOTE | 2018-05-01 00:15 | NUR ---
SOCIAL SERVICE CONSULT PLACED FOR EVALUATION OF LIVING SITUATION. SEE PRESSURE ULCER WOUNDS AND WOUND TO RIGHT ARM.
--- NOTE | 2018-05-01 00:30 | NUR ---
PATIENT ONLY ALERT AND ORIENT X2 AND FAMILY NOT PRESENT DURING ADMISSION. MUCH INFORMATION INCLUDING CONFIRMATION OF MEDICATION; ADVANCED DIRECTIVES; AND IMMUNIZATION INFORMATION WILL NEED TO BE OBTAINED FROM DAUGHTER, VANITA. WILL CALL IN THE AM.
[2018-05-01] MEDS: ATORVASTATIN 20 MG TAB PO SCH ×2 (00:34→21:13)
[2018-05-01] MEDS: ACCU-CHEK COMFORT CURVE STRIP VI SCH ×5 (00:35→21:13)
[2018-05-01] MEDS: METOPROLOL TARTRATE 25 MG TAB PO SCH ×3 (00:35→21:20)
[2018-05-01] MEDS: SODIUM CHLORIDE 0.9% 1,000 ML IV SCH ×2 (03:45→11:23)
[2018-05-01 05:00] VITALS: BP 116/72
[2018-05-01 05:12] VITALS: BP 139/75
--- NOTE | 2018-05-01 06:28 | NUR ---
AM GLUCOSE 69. CUP OF CRANBERRY JUICE GIVEN. PATIENT TOLERATED WITH NO SIGNS OF ASPIRATION.
[2018-05-01] MEDS: InsuLIN REG 1unit/0.01ml Soln (100units/ml) SC SCH ×4 (07:00→21:13)
--- NOTE | 2018-05-01 07:25 | NUR ---
Received report from night auditor RN Jaclyn that she already did the Accu check for 7:00 am, no Insulin R coverage.
--- NOTE | 2018-05-01 07:30 | NUR ---
Wounds noted. Body weakness noted. Wound Consult pending.
[2018-05-01] MEDS: Glucerna Carbsteady SHAKE Vanilla 8oz PO SCH ×3 (08:00→17:47)
[2018-05-01 08:09] LABS: BUN/Creatinine Ratio 8.7; Calcium 7.4 mg/dL (8.5-10.1); Potassium 4.8 mmol/L (3.5-5.1)
--- NOTE | 2018-05-01 08:10 | NUR ---
Patient needs assist with feeding.
--- NOTE | 2018-05-01 08:10 | NUR ---
Patient sitting in bed, eating breakfast. Hand tremors noted, left arm weakness noted, right hand unsteady when holding spoon or fork or cup. Bed alarm on. Placed on O2 at 2 LPM via nasal cannula. Bed alarm on.
[2018-05-01 08:16] VITALS: BP 100/37
[2018-05-01] MEDS: LISINOPRIL 10 MG TAB PO SCH (10:00)
[2018-05-01] MEDS: ASPirin-EC 81 mg tab PO SCH (11:13)
[2018-05-01] MEDS: NITROGLYCERIN 0.2MG/HR TOPICAL PATCH TD SCH (11:15)
--- NOTE | 2018-05-01 11:58 | NUR ---
Dr. Costa at bedside, spoke with patient. said patient is lethargic but not confused. Patient is incontinent, with wounds noted. ordered to obtain urine specimen via straight catheter. Dr. Costa to put an order for transfer to [place].
[2018-05-01 12:28] LABS: Magnesium 1.7 mg/dL (1.6-2.6)
[2018-05-01 12:42] VITALS: BP 115/52
[2018-05-01] MEDS ORDERED: MAGNESIUM SULFATE 1GM/100ML 100 ML IV ONE (13:00)
[2018-05-01 13:14] LABS: Urine Bacteria FEW /hpf (None Seen); Urine Blood 1+ /uL (Negative); Urine Specific Gravity 1.018 (1.001-1.035); Urine WBC 50 /hpf (0 - 5)
--- NOTE | 2018-05-01 13:42 | NUR ---
Received a call back from [place] Device Repair Technician Negin. Negin said she has not spoke with the [facility] Device Repair Technician but will call me back because she has a call from the doctor at this time.
--- NOTE | 2018-05-01 13:43 | NUR ---
Called patient's daughter Alana Chris ([phone]). Son said her mother is not there, he will call her to call me back.
--- NOTE | 2018-05-01 14:15 | NUR ---
Received a call back from [employer] Senior Sergeant Negin. Negin said she's arranging the transfer either at [facility] or [facility]. Report given to Negin that patient has wounds noted. Patient was scratching. Patient is oriented x3, lethargic, bed bound. Informed Negin to call patient's daughter Alana Chris. I attempted to call but the patient's daughter is not home as per son.
--- NOTE | 2018-05-01 14:37 | NUR ---
Paged the Power Ballast Machine Operator Yola John.
--- NOTE | 2018-05-01 14:40 | NUR ---
Daughter Alana Chris came over, she wants patient to be transferred to [facility] because patient's doctor is there.
--- NOTE | 2018-05-01 14:41 | NUR ---
Called Cash Management Coordinator Soraida regarding patient's daughter's request to transfer the patient to [facility] because the patient's doctor is there.
--- NOTE | 2018-05-01 14:53 | NUR ---
Spoke with Dr. Costa that patient needs a discharge order for transfer to [facility].
--- NOTE | 2018-05-01 15:05 | NUR ---
Kay Costa. ordered to put in Discharge Orders to Acute Care Facility transfer ([facility]).
--- NOTE | 2018-05-01 15:42 | NUR ---
Tylenol PO given for pain.
--- NOTE | 2018-05-01 16:00 | NUR ---
WOUND CARE NOTE: Wound care consult received for wounds noted to left heel, sacrum and sujey/groin area. Patient is a 83yo female admitted for acute coronary syndrome. Patient with a history of NE, hypertension, diabetes, afib, pacemaker, COPD and recent GI bleed. Patient is alert and denies pain. Last Harvey score is 13. Patient noted with a dark intact blister to left heel measuring 6x6cm, several areas of pink scarring to sacrum, and moisture dermatitis to bilateral groin folds/sujey area. Plan for patient to transfer to [facility] when bed is available. RECOMMENDATIONS: Turn q2hrs; Dietary consult; Nursing to off load bilateral heels with pillows/arminda boots; Nursing to cleanse sacrum/sujey area/groin with mild soap and water, pat dry, apply ZGUARD BID/PRN soiling; wound care to continue to follow. Addendum: 05/01/18 at 1908 by BEN MATTHEWS RN Amended: Links added.
[2018-05-01 16:45] VITALS: BP 127/67
--- NOTE | 2018-05-01 17:38 | NUR ---
Received a call back from [place] Heavy Truck Technician Negin that patient is not going to be transferred today at [place]; patient's daughter Alana Drake wants the patient to be transferred to [facility], refused [facility]. Negin to call again tomorrow if there's available bed at [facility].
--- NOTE | 2018-05-01 18:42 | NUR ---
Patient is a feeder.
[2018-05-01 23:46] VITALS: BP 156/77
[2018-05-02] VITALS (7 sets, daily range): BP systolic 139–197; BP diastolic 60–101
--- NOTE | 2018-05-02 06:33 | NUR ---
SIGN OFF PATIENT RESTING IN BED W/NO SIGNS OF DISTRESS NOTED. BED IN LOWEST LOCKED POSITION W/CALL [place]MAN W/IN REACH. STAFF INSTRUCTED TO HOLD BREAKFAST TRAY FOR SCHEDULED STRESS TEST. ENDORSING CARE TO DAY RN.
[2018-05-02] MEDS: InsuLIN REG 1unit/0.01ml Soln (100units/ml) SC SCH ×4 (06:56→21:47)
[2018-05-02] MEDS: ACCU-CHEK COMFORT CURVE STRIP VI SCH ×4 (06:57→21:36)
--- NOTE | 2018-05-02 07:35 | NUR ---
Opening Shift Note Assumed care of patient, awake, alert and oriented x2. Nasal canula a 2L, breath sounds even and unlabored. No S/S of distress/SOB or pain. Bed at lowest position and call light within reach. Bed alarm on. Instructed on POC and to call for assistance PRN, will continue to monitor for changes Q1hr and PRN.
[2018-05-02] MEDS: Glucerna Carbsteady SHAKE Vanilla 8oz PO SCH ×3 (08:00→18:00)
[2018-05-02] MEDS ORDERED: ADENOSINE 57 MG in GIVE UN-DILUTED 0 ML IV STA (08:11)
--- NOTE | 2018-05-02 09:03 | NUR ---
Patient down for procedure.
--- NOTE | 2018-05-02 09:50 | NUR ---
LELA IS STILL WORKING ON GETTING BED FOR THIS PT AT [place]
[2018-05-02] MEDS ORDERED: CEFTRIAXONE SODIUM 2 GM in D5W 5% 50 ML IV ONE (10:45)
[2018-05-02] MEDS: LISINOPRIL 10 MG TAB PO SCH (11:21)
[2018-05-02] MEDS: ASPirin-EC 81 mg tab PO SCH (11:22)
[2018-05-02] MEDS: METOPROLOL TARTRATE 25 MG TAB PO SCH ×2 (11:22→21:47)
[2018-05-02] MEDS: NITROGLYCERIN 0.2MG/HR TOPICAL PATCH TD SCH (11:23)
[2018-05-02] MEDS: PANTOPRAZOLE 40 MG/10 ML VIAL IV SCH ×2 (11:24→21:35)
[2018-05-02] MEDS ORDERED: CEFEPIME HYDROCHLORIDE 2 GM in SODIUM CHL 0.9% 50 ML IV ONE (11:30)
--- NOTE | 2018-05-02 12:20 | NUR ---
Contacted Fior from Stress lab, she informed me that Dr. Oconnor will be doing the official stress test reading for patient. Awaiting call back.
[2018-05-02] MEDS: hydrALAZINE HCL 20 MG/ML VL IV PRN (12:34)
--- NOTE | 2018-05-02 12:40 | NUR ---
Switched electrodes for tele box. Tele box is still not reading. Informed DONA tele-industrial manufacturing technician. Awaiting for new leads.
--- NOTE | 2018-05-02 12:40 | NUR ---
Patients BP is 206/115 administered Apresoline 10mg as prescribed by . Paged for Dr. Costa. Will continue to monitor .
--- NOTE | 2018-05-02 13:04 | NUR ---
Negin CEBALLOS for [place] wants results of echo so she can transfer pt. Primary RN is aware
--- NOTE | 2018-05-02 13:06 | NUR ---
Re-assessed BP, 143/65, no s/s of distress noted. Will continue to monitor.
[2018-05-02 13:20] LABS: Basophils # (auto) 0 uL; Basophils % (auto) 0.4 % (0.0-2.0); Eosinophils # (auto) 0.4 uL; Eosinophils % (auto) 3.3 % (0.0-7.0); Hematocrit 38.3 % (36.0-46.0); Hemoglobin 12.3 g/dL (12.2-16.2); Lymphocytes # (auto) 0.6 uL; Lymphocytes % (auto) 5.7 % (10.0-50.0); Mean Corpuscular Hemoglobin 28.3 pg (28.0-32.0); Mean Corpuscular Hgb Conc. 32.1 g/dL (32.0-36.0); Monocytes # (auto) 0.6 uL; Neutrophils # (auto) 9.4 uL; Neutrophils % (auto) 85.6 % (37.0-80.0); Nucleated Red Blood Cells % 0.1 %; Platelet Count (auto) 183 10^3/uL (140-450); Red Blood Cells 4.35 10^6/uL (4.0-5.20); Red Cell Distribution Width 18.6 % (11.8-14.3)
[2018-05-02] MEDS: HYDROcodone-ACET 5/325MG TAB PO PRN ×2 (13:24→21:35)
[2018-05-02 14:01] LABS: Albumin 2.2 g/dL (3.4-5.0); BUN/Creatinine Ratio 9.2; Calcium 7.5 mg/dL (8.5-10.1); Potassium 4.3 mmol/L (3.5-5.1)
[2018-05-02 14:03] LABS: Bilirubin, Total 0.2 mg/dL (0.2-1.0); Total Protein 6.6 g/dL (6.4-8.2)
[2018-05-02] MEDS: CEFEPIME HYDROCHLORIDE 2 GM in SODIUM CHL 0.9% 50 ML IV SCH (14:10)
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
--- NOTE | 2018-05-02 18:45 | NUR ---
RECEIVED A CALL FROM CHIDI PRESS FEEDER BROOMCORN FROM [place], SHE STATED " IF THE STRESS TEST RESULTS ARE NOT READ BY TODAY, THE PATIENT WILL NO LONGER HAVE AUTHORIZATION TO STAY AT OUR HOSPITAL."
--- NOTE | 2018-05-02 19:27 | NUR ---
PATIENT RESTING COMFORTABLY IN BED. BED AT LOWEST POSITION AND CALL LIGHT WITHIN REACH. FAMILY AT BEDSIDE. ENDORSED CARE TO NOC RN.
--- NOTE | 2018-05-02 19:37 | NUR ---
CALLED [facility]ESS [facility]. NO ANSWER. CONFIRMED W/PBX THAT THEY HAVE LEFT FOR THE DAY. SHERI RICHARDSON AWARE. PER DAY RNEUSEBIO OLGA AT [facility] INSISTED THAT PATIENT'S STRESS TEST BE READ TODAY OR SHE WILL NO LONGER HAVE AUTHORIZATION TO STAY HERE. AGAIN... CHARGE AWARE. DAY RN HAS MADE NUMEROUS CALLS TO [facility] AND INFORMED THEM OF THE URGENCY OF THIS MATTER: THAT THIS STRESS TEST MUST BE READ TODAY.
[2018-05-02] MEDS: ONDANSETRON HCL 4 MG/2 ML VIAL IV PRN (21:35)
[2018-05-02] MEDS: ATORVASTATIN 20 MG TAB PO SCH (21:35)
[2018-05-02] MEDS ORDERED: CEFEPIME HYDROCHLORIDE 2 GM in SODIUM CHL 0.9% 50 ML IV SCH (22:00)
[2018-05-03] VITALS (7 sets, daily range): BP systolic 131–183; BP diastolic 62–88
[2018-05-03] MEDS: InsuLIN REG 1unit/0.01ml Soln (100units/ml) SC SCH ×4 (06:42→22:00)
[2018-05-03] MEDS: ACCU-CHEK COMFORT CURVE STRIP VI SCH ×4 (06:42→22:00)
--- NOTE | 2018-05-03 06:43 | NUR ---
END OF SHIFT PATIENT CLEAN, DRY, AND REPOSITIONED. AM BLOOD SUGAR WAS 82. PATIENT HYDRATED WITH ICE WATER. STATED THAT SHE WAS THIRSTY AND CONSUMED APPX 200 ML'S OF WATER. NOW RESTING IN BED COMFORTABLY. SIGNS OF DISTRESS NOTED. BED IN LOWEST LOCKED POSITION W/CALL [facility]MAN W/IN REACH. ENDORSING CARE TO DAY RN
--- NOTE | 2018-05-03 07:40 | NUR ---
Opening Shift Note Assumed care of patient, asleep in bed on 2L NC, no S/S of distress/SOB or pain. Bed at lowest position and call light within reach. Will continue to monitor for changes Q1hr and PRN.
[2018-05-03] MEDS: Glucerna Carbsteady SHAKE Vanilla 8oz PO SCH ×3 (08:00→17:54)
[2018-05-03] MEDS ORDERED: cefTRIAXone 1GM/50ML D5W 50 ML IV SCH (09:00)
[2018-05-03] MEDS: PANTOPRAZOLE 40 MG/10 ML VIAL IV SCH ×2 (10:04→22:39)
[2018-05-03] MEDS: LISINOPRIL 10 MG TAB PO SCH (10:05)
[2018-05-03] MEDS: NITROGLYCERIN 0.2MG/HR TOPICAL PATCH TD SCH (10:05)
[2018-05-03] MEDS: METOPROLOL TARTRATE 25 MG TAB PO SCH ×2 (10:06→22:38)
[2018-05-03] MEDS: ASPirin-EC 81 mg tab PO SCH (10:06)
--- NOTE | 2018-05-03 11:17 | NUR ---
CALLED [facility] TO GET INFORMATION ON WHO WILL BE DOING THE OFFICIAL READING FOR THE STRESS TEST. AWAITING CALL BACK.
--- NOTE | 2018-05-03 11:23 | NUR ---
PAGED FOR [facility] CASE MANAGEMENT. LEFT A MESSAGE REGARDING PATIENT TRANSFER. AWAITING CALL BACK.
[2018-05-03] MEDS: CEFEPIME HYDROCHLORIDE 2 GM in SODIUM CHL 0.9% 50 ML IV SCH (11:48)
[2018-05-03] MEDS: HYDROcodone-ACET 5/325MG TAB PO PRN (11:48)
--- NOTE | 2018-05-03 12:22 | NUR ---
Nutrition Assessment/consult Notes Please see attached link for complete assessment Est. Needs BW [id number] kcal (23-25 kcal/kgBW), 55-68 gms pro (0.8-1.0 gms/kgBW r/t elev RFT, wounds severe hypoalb). Will continue to monitor pertinent labs and reassess nutrient need prn Addendum: 05/03/18 at [address] Amended: Links added.
--- NOTE | 2018-05-03 13:10 | NUR ---
IV removal Patient's arm appears swollen, no redness at site, no c/o pain. IV DC'd with clean sterile technique, catheter fully intact. Pressure dressing applied to site. Patient tolerated well.
--- NOTE | 2018-05-03 14:00 | NUR ---
Attempted to obtain IV access to the right hand. No access obtained.
--- NOTE | 2018-05-03 14:15 | NUR ---
Called [facility] and spoke to Fior, she said Dr. Oconnor will be doing the official readings for the stress tests today. And that he just arrived. She will inform him of the urgency to receive the test results.
--- NOTE | 2018-05-03 14:50 | NUR ---
IV insertion IV access obtained by Giorgio KUMAR, via clean sterile technique by inserting 22 gauge catheter at right Forearm after 1 attempt. IV secured properly. No trauma to site. Patient tolerated well.
--- NOTE | 2018-05-03 15:27 | NUR ---
Per Negin at [facility], will not transfer pt without stress test results to them
--- NOTE | 2018-05-03 16:25 | NUR ---
at 1530 hrs, I faxed [facility] transfer order along with labs and meds since no progress notes for today as of yet
--- NOTE | 2018-05-03 16:58 | NUR ---
Paged for Dr. Costa regarding patients stress test and transfer orders. Addendum: 05/03/18 at 1706 by Karyn Mayo RN Dr. Costa called back and requested to fax his progress notes regarding the stress test. Paged christian Quigley for the day.
--- NOTE | 2018-05-03 18:18 | NUR ---
WOUND CARE CLEANSED SACRUM/EMPERATRIZ AREA WITH WARM WATER, PATTED DRY WITH WASHCLOTH AND APPLIED ZGUARD AND NEW OPTIFOAM. PATIENT TOLERATED WELL.
[2018-05-03] MEDS: hydrALAZINE HCL 20 MG/ML VL IV PRN (18:52)
--- NOTE | 2018-05-03 19:50 | NUR ---
Patient comfortably resting in bed. Call light at bedside. Bed at lowest position. Care Endorsed to Yolanda KUMAR.
[2018-05-03] MEDS ORDERED: HEPARIN SODIUM (PORCINE) 5000 UNITS/ML 1ML VIAL ONE (22:31)
[2018-05-03] MEDS: cefTRIAXone 1GM/50ML D5W 50 ML IV SCH (22:36)
[2018-05-03] MEDS: ATORVASTATIN 20 MG TAB PO SCH (22:37)
[2018-05-03] MEDS: HEPARIN SODIUM (PORCINE) 5000 UNITS/ML 1ML VIAL SC SCH (23:07)
[2018-05-04] MEDS ORDERED: HEPARIN SODIUM (PORCINE) 5000 UNITS/ML 1ML VIAL ONE ×2 (04:55→21:05)
[2018-05-04] MEDS: hydrALAZINE HCL 20 MG/ML VL IV PRN ×2 (05:01→21:27)
[2018-05-04] MEDS: HEPARIN SODIUM (PORCINE) 5000 UNITS/ML 1ML VIAL SC SCH ×3 (05:02→21:35)
[2018-05-04 05:21] VITALS: BP 183/87
[2018-05-04] MEDS: InsuLIN REG 1unit/0.01ml Soln (100units/ml) SC SCH ×4 (06:40→21:40)
--- NOTE | 2018-05-04 06:42 | NUR ---
PT DILIGENTLY TURNED Q2 HOURS THROUGHOUT SHIFT.TOLERATED WELL.
[2018-05-04] MEDS: ACCU-CHEK COMFORT CURVE STRIP VI SCH ×4 (06:43→21:39)
[2018-05-04] MEDS: Glucerna Carbsteady SHAKE Vanilla 8oz PO SCH ×3 (08:00→18:00)
--- NOTE | 2018-05-04 08:38 | NUR ---
Paged on-call manager of case management regarding status of transfer.
[2018-05-04 09:00] VITALS: BP 163/79
--- NOTE | 2018-05-04 09:20 | NUR ---
Dr. Oconnor paged to read cardiac stress test. made aware transfer is pending dictation of results. Awaiting call back.
--- NOTE | 2018-05-04 09:20 | NUR ---
Per LIN John, transfer is pending dictation of stress test results. [facility] refuses to transfer patient until results are charted. Per , Dr. Oconnor is MD who will read results. production welding supervisor aware. Contact [facility] for more information. Next note provides [facility]'s contact information.
--- NOTE | 2018-05-04 09:21 | NUR ---
[facility] CONTACT INFO PHONE: [phone]. FAX: [phone].
--- NOTE | 2018-05-04 09:40 | NUR ---
Per Dr. Oconnor, Dr. Isabel put in the operative record for stress test. made aware no notes or records exist by Dr. Isabel. Per , he will read results now.
[2018-05-04] MEDS: cefTRIAXone 1GM/50ML D5W 50 ML IV SCH ×2 (09:43→21:20)
[2018-05-04] MEDS: FLUCONAZOLE 200MG/100ML 100 ML IV SCH (09:43)
[2018-05-04] MEDS: PANTOPRAZOLE 40 MG/10 ML VIAL IV SCH ×2 (09:43→21:26)
[2018-05-04] MEDS: LISINOPRIL 10 MG TAB PO SCH (09:44)
[2018-05-04] MEDS: ASPirin-EC 81 mg tab PO SCH (09:44)
[2018-05-04] MEDS: NITROGLYCERIN 0.2MG/HR TOPICAL PATCH TD SCH (09:45)
[2018-05-04] MEDS: METOPROLOL TARTRATE 25 MG TAB PO SCH ×2 (09:45→21:27)
[2018-05-04] MEDS: HYDROcodone-ACET 5/325MG TAB PO PRN (09:50)
--- NOTE | 2018-05-04 11:42 | NUR ---
Requested clinicals faxed to [place].
--- NOTE | 2018-05-04 12:15 | NUR ---
Jun received paperwork. Per Jun, patient must have stability order with type of bed requested to start on transfer. Spoke with with Dr. Sarmiento. Stability order written in discharge order and patient is to be transferred ACLS to telemetry bed.
--- NOTE | 2018-05-04 12:23 | NUR ---
Requested clinicals faxed to [facility]. Awaiting call back.
[2018-05-04 12:55] VITALS: BP 136/71
--- NOTE | 2018-05-04 15:14 | NUR ---
Spoke with [facility] transferring center. [facility] received all paperwork for transfer. manager acute will be Amber. [facility] would not release CM phone number/extension. Per transfer center, CM will contact primary RN at [facility] with additional details or requests. Awaiting call back.
[2018-05-04 16:53] VITALS: BP 126/60
--- NOTE | 2018-05-04 17:42 | NUR ---
Attempted to reach [facility]. On hold for 28 minutes. [facility] personal service representative answered phone and disconnected. Will attempt to call again.
--- NOTE | 2018-05-04 18:07 | NUR ---
Attempted to reach [facility] again. On hold for 23 minutes. Director Investor Relations hung up on primary RN. service transformer repair supervisor aware. Will endorse to next shift.
--- NOTE | 2018-05-04 19:01 | NUR ---
Per pharmacy, patient does not have POM medications. Left message with patient's daughter Alana regarding status of POM medications. Awaiting call back.
--- NOTE | 2018-05-04 19:26 | NUR ---
Change of shift given to clarity developer RN. No distress noted.
--- NOTE | 2018-05-04 19:30 | NUR ---
Opening Shift Note Assumed care of patient, awake and alert. IV patent to right FA. Turning pt q2 hours. Spoke with daughter Anca. Waiting on [place] Inderjit to call with a bed. No S/S of distress/SOB or pain. Instructed on POC and to call for assist PRN, will continue to monitor for changes Q1hr and PRN.
[2018-05-04] MEDS: ATORVASTATIN 20 MG TAB PO SCH (21:27)
[2018-05-04 21:45] VITALS: BP 166/84
[2018-05-05 05:34] VITALS: BP 183/85
[2018-05-05] MEDS: InsuLIN REG 1unit/0.01ml Soln (100units/ml) SC SCH ×4 (06:09→22:00)
[2018-05-05] MEDS: ACCU-CHEK COMFORT CURVE STRIP VI SCH ×4 (06:10→22:54)
[2018-05-05] MEDS: HEPARIN SODIUM (PORCINE) 5000 UNITS/ML 1ML VIAL SC SCH ×3 (06:26→22:52)
[2018-05-05] MEDS: hydrALAZINE HCL 20 MG/ML VL IV PRN ×2 (06:58→18:45)
--- NOTE | 2018-05-05 07:00 | NUR ---
Noticed BP was high 183/85. Medicated with hydralazine per order. Had an episode of incontinenc. Cleansed sujey area and new optifoam dressing applied to coccyx. Nop distress at this time. Endorsed care to Myranda
--- NOTE | 2018-05-05 07:08 | NUR ---
Opening Shift Note Assumed care of patient, awake and alert. No S/S of distress/SOB or pain. Instructed on POC and to call for assist PRN, will continue to monitor for changes Q1hr and PRN.
[2018-05-05] MEDS: Glucerna Carbsteady SHAKE Vanilla 8oz PO SCH ×3 (08:00→18:00)
[2018-05-05] MEDS: cefTRIAXone 1GM/50ML D5W 50 ML IV SCH (09:25)
[2018-05-05] MEDS: PANTOPRAZOLE 40 MG/10 ML VIAL IV SCH ×2 (09:25→22:49)
[2018-05-05] MEDS: LISINOPRIL 10 MG TAB PO SCH (09:25)
[2018-05-05] MEDS: METOPROLOL TARTRATE 25 MG TAB PO SCH ×2 (09:26→22:50)
[2018-05-05] MEDS: ASPirin-EC 81 mg tab PO SCH (09:26)
[2018-05-05] MEDS: NITROGLYCERIN 0.2MG/HR TOPICAL PATCH TD SCH (09:27)
[2018-05-05 09:51] VITALS: BP 191/81
[2018-05-05] MEDS: FLUCONAZOLE 200MG/100ML 100 ML IV SCH (11:47)
[2018-05-05 13:00] VITALS: BP 170/81
[2018-05-05] MEDS ORDERED: MORPHINE SULF INJ 2 MG/ML SYRINGE 1ML IV PRN ×2 (13:00→13:15)
--- NOTE | 2018-05-05 14:20 | NUR ---
On hold with [facility] for 38 minutes. Per [facility], refax paperwork. Requested clinicals refaxed to [facility].
[2018-05-05] MEDS: ONDANSETRON HCL 4 MG/2 ML VIAL IV PRN (14:27)
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
[2018-05-05 17:30] VITALS: BP 154/79
--- NOTE | 2018-05-05 17:31 | NUR ---
On-call hospitalist Dr. Helms paged as requested by pharmacy. Per pharmacy request is urgent. Awaiting call back.
--- NOTE | 2018-05-05 17:41 | NUR ---
[facility] returned call. will look at C&S and adjust antibiotics.
[2018-05-05] MEDS: HYDROcodone-ACET 5/325MG TAB PO PRN (18:46)
[2018-05-05] MEDS: MEROPENEM 1GM IVPB 100 ML IV SCH (18:56)
--- NOTE | 2018-05-05 19:12 | NUR ---
Change of shift given to machinist 2nd shift RN. No distress noted.
[2018-05-05] MEDS ORDERED: LINEZOLID 600MG/300ML 300 ML IV SCH (21:00)
[2018-05-05 22:00] VITALS: BP 133/70
[2018-05-05] MEDS: ATORVASTATIN 20 MG TAB PO SCH (22:49)
[2018-05-06] VITALS (7 sets, daily range): BP systolic 145–199; BP diastolic 73–99
[2018-05-06] MEDS: InsuLIN REG 1unit/0.01ml Soln (100units/ml) SC SCH ×4 (06:17→22:00)
[2018-05-06] MEDS: MEROPENEM 1GM IVPB 100 ML IV SCH (06:17)
[2018-05-06] MEDS: HEPARIN SODIUM (PORCINE) 5000 UNITS/ML 1ML VIAL SC SCH ×3 (06:25→22:43)
[2018-05-06] MEDS: ACCU-CHEK COMFORT CURVE STRIP VI SCH ×4 (06:26→22:00)
--- NOTE | 2018-05-06 07:38 | NUR ---
Left message with Soraida Duncan CM regarding pending transfer to [place].
[2018-05-06] MEDS: NITROGLYCERIN 0.2MG/HR TOPICAL PATCH TD SCH (08:14)
[2018-05-06] MEDS: PANTOPRAZOLE 40 MG/10 ML VIAL IV SCH ×2 (08:14→23:01)
[2018-05-06] MEDS: Glucerna Carbsteady SHAKE Vanilla 8oz PO SCH ×3 (08:15→18:00)
[2018-05-06] MEDS: ASPirin-EC 81 mg tab PO SCH (08:15)
[2018-05-06] MEDS: METOPROLOL TARTRATE 25 MG TAB PO SCH (08:15)
[2018-05-06] MEDS: LISINOPRIL 10 MG TAB PO SCH (08:15)
--- NOTE | 2018-05-06 08:30 | NUR ---
call center support representative 05/04/18-I received a page from nurse Chirinos asking about the transfer of this patient to [facility]-I provided her with the phone number to [facility] [phone].
--- NOTE | 2018-05-06 10:44 | NUR ---
faxed to [facility] reports, labs,meds,and todays dated transfer order
[2018-05-06] MEDS: METOPROLOL TARTRATE 50 MG TAB PO SCH ×2 (10:45→23:02)
[2018-05-06] MEDS ORDERED: MEROPENEM 500MG IVPB 50 ML IV SCH (11:15)
--- NOTE | 2018-05-06 11:17 | NUR ---
called [facility] to talk with LIN for this pt, Amber CEBALLOS not available per Angeli DEL VALLE, but will have Amber call me about this transfer. I did tell Angeli that nuclear stress test report was faxed to [facility] at approx 0700 hrs and Angeli confirmed she see s report and will give to CM
[2018-05-06] MEDS ORDERED: cloNIDine HCL 0.1 MG TAB PO ONE ×2 (12:15→19:00)
--- NOTE | 2018-05-06 12:53 | NUR ---
Paged Dr. Costa to complete transfer summary for today's date.
--- NOTE | 2018-05-06 13:53 | NUR ---
Called Haven sanchez RN. Patient is to receive midline soon.
--- NOTE | 2018-05-06 14:29 | NUR ---
Paged Dr. Campbell.
--- NOTE | 2018-05-06 14:29 | NUR ---
Spoke with Jun Clark. Per LIN, she never received fax of stress test. Fax number is [phone]. Amber requests daughter to call her. Phone number is [phone].
--- NOTE | 2018-05-06 14:39 | NUR ---
Stress test report faxed to Amber Barahona CM.
--- NOTE | 2018-05-06 14:46 | NUR ---
Spoke with Jun Clark. [facility] does not have results of echocardiogram. Echocardiogram faxed.
--- NOTE | 2018-05-06 14:49 | NUR ---
Midline Placement: Patient educated on need for midline placement. All risks and benefits explained and all questions and concerns addresses prior to procedure. 18g/10cm midline inserted via left brachial vein using Ultrasound. Sterile technique utilized. Blood return obtained from single lumen and flushed easily with NS using proper technique. Midline secured with saline lock; biodisc and occlusive dressing applied. Primary RN notified. Midline lot #[id number].
--- NOTE | 2018-05-06 15:06 | NUR ---
Spoke with Jemal from [facility]. Per , transfer check list was faxed. Once faxed, [facility] will work on finding patient a bed.
[2018-05-06] MEDS: FLUCONAZOLE 200MG/100ML 100 ML IV SCH (15:24)
--- NOTE | 2018-05-06 15:48 | NUR ---
Faxed [facility] check off list to Soraida Duncan CM. Paged Dr. Costa to update transfer summary. Awaiting call back.
--- NOTE | 2018-05-06 15:49 | NUR ---
INSTRUCTED [place], PRIMARY RN NOT TO TALK WITH [facility] ANYMORE AND TO REFER THEM TO ME EXT [phone] AND TO STOP FAXING [facility] PT INFO WHEN I AM HERE [id number] HRS
--- NOTE | 2018-05-06 16:01 | NUR ---
THIRD CALL TODAY FOR [facility] TO TRANSFER PT, I NEVER DID GET A CALL BACK FROM [facility] AND ATTEMPTED TO CALL AT 1515 HRS AND WAS ON HOLD FOR 15 MIN AND HAD TO HANG UP. I AM CURRENTLY ON HOLD NOW AND HAVE BEEN FOR THE LAST 10 MIN AND WILL STAY ON HOLD FOR LONG I CAN.
--- NOTE | 2018-05-06 16:10 | NUR ---
SPOKE TO GLORIA AGAIN AND INFORMED HER WHAT WAS TAKING SO LONG TO TRANSFER PT. I ASKED TO SPEAK TO MICHELLE AND WAS PLACED ON HOLD FOR ANOTHER 5 MIN ONLY TO BE TOLD THAT MICHELLE HAS TO CALL ME BACK SINCE SHE IS ON THE PHONE WITH ANOTHER CALL. INFORMED GLORIA THAT I LEAVE AT 1630 HRS AND TO CALL BEFORE THAT TIME
--- NOTE | 2018-05-06 16:25 | NUR ---
Left message with Soraida Duncan CM regarding updated transfer summary.
[2018-05-06] MEDS ORDERED: LISINOPRIL 20 MG TAB PO ONE (16:30)
[2018-05-06] MEDS: LINEZOLID 600MG/300ML 300 ML IV SCH (16:42)
[2018-05-06] MEDS ORDERED: METOPROLOL TARTRATE 1MG/1ML-5ML VIAL IV ONE (17:00)
--- NOTE | 2018-05-06 18:51 | NUR ---
Dr. Costa called. did not answer call. On-call hospitalist Dr. Helms paged regarding blood pressure. BP is 190/89, HR 101. Patient is asymptomatic and denies s/s of distress, HERNÁNDEZ, blurry vision. Awaiting call back.
[2018-05-06] MEDS ORDERED: METOPROLOL TARTRATE 25 MG TAB PO ONE (19:00)
--- NOTE | 2018-05-06 19:04 | NUR ---
Change of shift given to restaurant shift leader RN. No distress noted. restaurant shift leader RN aware about BP 190/89, HR 101. Per restaurant shift leader RN, she will medicate patient with pending orders.
[2018-05-06] MEDS ORDERED: CLO01T PO (19:38)
[2018-05-06] MEDS: MEROPENEM 500MG IVPB 50 ML IV SCH (21:29)
[2018-05-06] MEDS: ATORVASTATIN 20 MG TAB PO SCH (22:44)
[2018-05-06] MEDS: cloNIDine HCL 0.1 MG TAB PO SCH (23:01)
[2018-05-07] MEDS: HYDROcodone-ACET 5/325MG TAB PO PRN ×2 (02:39→18:25)
[2018-05-07 04:45] VITALS: BP 145/79
[2018-05-07] MEDS: HEPARIN SODIUM (PORCINE) 5000 UNITS/ML 1ML VIAL SC SCH ×2 (06:00→15:26)
[2018-05-07] MEDS: cloNIDine HCL 0.1 MG TAB PO SCH ×2 (06:55→15:27)
[2018-05-07] MEDS: LINEZOLID 600MG/300ML 300 ML IV SCH ×2 (06:56→17:00)
[2018-05-07] MEDS: ACCU-CHEK COMFORT CURVE STRIP VI SCH ×3 (06:58→17:25)
[2018-05-07] MEDS: InsuLIN REG 1unit/0.01ml Soln (100units/ml) SC SCH ×3 (06:58→17:00)
--- NOTE | 2018-05-07 07:00 | NUR ---
Changed linens and gown. Patient soiled bed. Cleansed under folds and placed towel to keep dry. No distress at this time. Call light within reach. Turned q2 through out night, and placed pillows under bony prominences.
--- NOTE | 2018-05-07 07:40 | NUR ---
Opening Shift Note Assumed care of patient, patient awake and alert laying in semi-fowlers position and resting comfortably. Patient is on 2 L NC with even and unlabored respirations. No S/S of distress/SOB or pain at this time. Bed is in lowest position, wheels are locked, side rails up x3, bed alarm set for safety, and call light is within reach. Instructed on POC and to call for assist PRN, will continue to monitor for changes Q1hr and PRN.
[2018-05-07] MEDS: Glucerna Carbsteady SHAKE Vanilla 8oz PO SCH ×3 (08:00→18:44)
[2018-05-07 08:30] VITALS: BP 91/54
--- NOTE | 2018-05-07 09:00 | NUR ---
no CM to take call, they get pts assigned at 0930 hrs, will call back at 1000 hrs
[2018-05-07] MEDS: MEROPENEM 500MG IVPB 50 ML IV SCH (09:11)
[2018-05-07] MEDS: PANTOPRAZOLE 40 MG/10 ML VIAL IV SCH (10:21)
[2018-05-07] MEDS: NITROGLYCERIN 0.2MG/HR TOPICAL PATCH TD SCH (10:24)
[2018-05-07] MEDS: ASPirin-EC 81 mg tab PO SCH (10:24)
[2018-05-07] MEDS: LISINOPRIL 10 MG TAB PO SCH (10:25)
[2018-05-07] MEDS: METOPROLOL TARTRATE 50 MG TAB PO SCH (10:25)
--- NOTE | 2018-05-07 10:30 | NUR ---
CALLED [facility] AND WAS PUT ON HOLD, WILL TRY AGAIN LATER
--- NOTE | 2018-05-07 10:45 | NUR ---
SPOKE TO FARHAD FROM [facility] PER FARHAD STILL WORKING ON SETTING UP A BED IN [facility], ONE IS CURRENTLY NOT AVAILABLE. NO MORE INFORMATION AVAILABLE AT THIS TIME. WILL CONTINUE TO MONITOR Q1H AND PRN.
--- NOTE | 2018-05-07 11:40 | NUR ---
DECREASED BLOOD GLUCOSE BLOOD SUGAR IS 48, RECHECKED REMAINS LOW AT 45. PATIENT IS ALERT AND AWAKE BUT STATING SHE FEELS "SLEEPY AND TIRED." PATIENT ABLE TO SWALLOW, ORANGE JUICE PROVIDED TO PATIENT. WILL RECHECK GLUCOSE.
--- NOTE | 2018-05-07 11:41 | NUR ---
LIN LLAMAS FOR [facility] LEFT MESSAGE ON MY PHONE TO CALL HIM REGARDING TRANSFER. I CALLED BACK ONLY TO BE ON HOLD AGAIN. I DID SEE THAT AJ SPOKE TO PRIMARY RN AND PRIMARY RN WAS TOLD NO BEDS AT [place] OF YET
[2018-05-07] MEDS: FLUCONAZOLE 200MG/100ML 100 ML IV SCH (11:45)
--- NOTE | 2018-05-07 12:28 | NUR ---
called FARHAD at [facility] and he was away from his desk, he is to call me back regarding this pt's transfer
[2018-05-07 12:30] VITALS: BP 150/69
--- NOTE | 2018-05-07 12:30 | NUR ---
BLOOD SUGAR RECHECKED. BLOOD GLUCOSE NOW RECHECKED. NOW 91. PATIENT MUCH MORE ALERT NOW. WILL CONTINUE TO MONITOR Q1H AND PRN.
--- NOTE | 2018-05-07 12:56 | NUR ---
AJ, CM AT [facility] CALLED ME AND LEFT MESSAGE THAT THEY ARE WORKING ON GETTING PT TO [facility] TODAY
--- NOTE | 2018-05-07 14:00 | NUR ---
PT AT BEDSIDE PT AT BEDSIDE WORKING WITH PATIENT. PATIENT TRANSFERRED TO CHAIR FROM BED WITH MAX ASSIST. PATIENT TOLERATED WELL. NO S/S OF DISTRESS/SOB OR PAIN AT THIS TIME. WILL CONTINUE TO MONITOR Q1H AND PRN.
[2018-05-07 17:07] VITALS: BP 151/73
--- NOTE | 2018-05-07 19:23 | NUR ---
Closing Note Patient awake and alert laying in bed comfortably. No S/S of distress/SOB or pain. D/C to [facility] pending, with P/U at 2029. ound care photos and rest of D/C endorsed. Care endorsed to [facility].
--- NOTE | 2018-05-07 19:30 | NUR ---
Opening Shift Note Assumed care of patient, awake and alert x3. Forgetful at times. Poor historian. Patient is fairly sleepy and lethargic. Family at bedside and aware of transfer to [facility]. Will call to give report and take pictures of patients wounds. Pillows used to pad all bony prominences and behind left side. Edematous to bilateral extremities non pitting. Midline to left upper arm patent and benign. No S/S of distress/SOB or pain. Instructed on POC and to call for assist PRN, will continue to monitor for changes Q1hr and PRN.
--- NOTE | 2018-05-07 20:26 | NUR ---
Pictures taken of pressure ulcer to coccyx. Cleansed wound and applied new optifoam dressing. Picture taken of scab to right upper arm. Daughter assisted with turning as well as cleaning sujey area from urine incontinence. Vitals taken and reported to Ginna CEBALLOS from [place]. BP is better than its been the last 4 days I have had her. 134/63 18 94% on 2 liters NC, 98.1 and pulse 72. Awaiting [facility] for transfer to [facility]. Call light within reach and bed in lowest position. No distress noted. Daughter at bedside.
--- NOTE | 2018-05-07 21:15 | NUR ---
RUKHSANA picked up patient. Report given to RUKHSANA as well as Ghassan KUMAR whos taking over care at [facility]. Tele box removed and returned to DONA. Daughter Alana took all of her belongings home with her with the exception of a blanket that went with patient. Vitals stable. No distress noted.
== END 2018-05-07 21:10 | disposition short-term general hospital (02) | DRG 280 ==
LOC: ER 13:15 → EDBD 13:15 → TELE 18:20 → TELE-WESTW 21:58
PROVIDERS: ADMIT Nurse Practitioner Acute Care; ATTEND Internal Medicine
DX: I21.4 Non-ST elevation (NSTEMI) myocardial infarction (principal); E43 Unspecified severe protein-calorie malnutrition; I13.0 Hypertensive heart and chronic kidney disease with heart failure and stage 1 through stage 4 chronic kidney disease, or unspecified chronic kidney disease; B37.49 Other urogenital candidiasis; I50.9 Heart failure, unspecified; N18.3 Chronic kidney disease, stage 3 (moderate); J44.9 Chronic obstructive pulmonary disease, unspecified; E11.22 Type 2 diabetes mellitus with diabetic chronic kidney disease; L89.152 Pressure ulcer of sacral region, stage 2; E78.5 Hyperlipidemia, unspecified; I25.10 Atherosclerotic heart disease of native coronary artery without angina pectoris; I48.0 Paroxysmal atrial fibrillation; K21.9 Gastro-esophageal reflux disease without esophagitis; D64.9 Anemia, unspecified; S71.101A Unspecified open wound, right thigh, initial encounter; X58.XXXA Exposure to other specified factors, initial encounter; I25.2 Old myocardial infarction; Z95.0 Presence of cardiac pacemaker; Z98.41 Cataract extraction status, right eye; Z98.42 Cataract extraction status, left eye; Z95.5 Presence of coronary angioplasty implant and graft; Z79.82 Long term (current) use of aspirin; Z79.899 Other long term (current) drug therapy; Z87.11 Personal history of peptic ulcer disease; Z86.73 Personal history of transient ischemic attack (TIA), and cerebral infarction without residual deficits; Z87.01 Personal history of pneumonia (recurrent); Y93.89 Activity, other specified; Y92.89 Other specified places as the place of occurrence of the external cause; Y99.8 Other external cause status; Z68.27 Body mass index [BMI] 27.0-27.9, adult
CPT/HCPCS: 36415; 71045; 78452; 80048; 80053; 80061; 81001; 82962; 83036; 83735; 83880; 84484; 85025; 85610; 85730; 86141; 87077; 87086; 87186; 87205; 93005; 93017; 93306; 94761; 96361; 96374; 96375; 97110; 97163; 97530; C9113; G0378; J0153; J0696; J1450; J1815; J2185; J2405; J7060

== ENCOUNTER 2018-06-12 12:16 | Inpatient (IN) | payer OTHER, MEDICAID | END 2018-06-15 21:00 | disposition short-term general hospital (02) | LOC: ER 12:16 → TELE 18:22 → TELE-CENTR 20:21 | DX: A41.9 Sepsis, unspecified organism (principal); J18.1 Lobar pneumonia, unspecified organism; E43 Unspecified severe protein-calorie malnutrition; I50.33 Acute on chronic diastolic (congestive) heart failure; N39.0 Urinary tract infection, site not specified; I50.32 Chronic diastolic (congestive) heart failure; I25.10 Atherosclerotic heart disease of native coronary artery without angina pectoris; Z95.2 Presence of prosthetic heart valve; I11.0 Hypertensive heart disease with heart failure; I48.91 Unspecified atrial fibrillation; D64.9 Anemia, unspecified; E87.6 Hypokalemia ==

== ENCOUNTER 2018-07-28 20:05 | Emergency (ER) | payer OTHER, MEDICAID ==
[~2018-07-28] VITALS: Ht 162.6 cm; Wt 68.0 kg
[~2018-07-28 20:05] MED LIST changes: -ASPI-231 PO; +CLO01T PO; -DABI75CA3 PO; -HCTZ25T PO; +HYDR-531 PO; -KEP500T PO; +LEVE500T22 PO; -POTA1TAB4 PO
[2018-07-28] MEDS ORDERED: ONDANSETRON HCL 4 MG/2 ML VIAL IV ONE (21:30)
[2018-07-28] MEDS ORDERED: SODIUM CHLORIDE 0.9% 1,000 ML IV ONE (21:30)
[2018-07-28] MEDS ORDERED: MORPHINE SULF INJ 2 MG/ML SYRINGE 1ML IV ONE ×2 (21:30→22:30)
[2018-07-28 21:32] LABS: Basophils # (auto) 0 uL; Basophils % (auto) 0.8 % (0.0-2.0); Eosinophils # (auto) 0.5 uL; Eosinophils % (auto) 7.6 % (0.0-7.0); Hematocrit 28.1 % (36.0-46.0); Hemoglobin 9.2 g/dL (12.2-16.2); Lymphocytes # (auto) 1.4 uL; Lymphocytes % (auto) 22.5 % (10.0-50.0); Monocytes # (auto) 0.3 uL; Monocytes % (auto) 5.6 % (0.0-12.0); Neutrophils # (auto) 3.8 uL; Neutrophils % (auto) 63.5 % (37.0-80.0); Platelet Count (auto) 233 10^3/uL (140-450); Red Blood Cells 3.19 10^6/uL (4.0-5.20); Red Cell Distribution Width 18.7 % (11.8-14.3)
[2018-07-28 21:42] LABS: Alanine Aminotransferase 15 U/L (13-56); Albumin 1.9 g/dL (3.4-5.0); Anion Gap 9 (5-15); Aspartate Aminotransferase 27 U/L (15-37); BUN/Creatinine Ratio 16.7; Blood Alcohol < 3.0 mg/dL (0-5); Blood Urea Nitrogen 15 mg/dL (7-18); Calcium 7.3 mg/dL (8.5-10.1); Carbon Dioxide 23 mmol/L (21-32); Chloride 113 mmol/L (98-107); GFR African American 77 mL/min; GFR Non-African American 64 mL/min; Glucose 107 mg/dL (74-106); Potassium 4.8 mmol/L (3.5-5.1); Sodium 145 mmol/L (136-145)
[2018-07-28 21:46] LABS: Alkaline Phosphatase 76 U/L (45-117); Bilirubin, Total 0.2 mg/dL (0.2-1.0); Total Protein 5.6 g/dL (6.4-8.2)
[2018-07-28 22:04] LABS: INR 2.61 (0.9-1.15); Partial Thromboplastin Time 41.4 sec (23.64-32.05)
[2018-07-29 01:43] LABS: Urine Bacteria MANY /hpf (None Seen); Urine Blood 1+ /uL (Negative); Urine Hyaline Cast MOD /lpf (0 - 2); Urine Mucus FEW (None Seen); Urine Specific Gravity 1.009 (1.001-1.035); Urine WBC 807 /hpf (0 - 5); Urine WBC Clumps PRESENT /hpf (None Seen)
[2018-07-29 01:52] LABS: Alcohol, Urine < 3.0 mg/dL (0-5); Amphetamine Screen, Urine NEGATIVE (NEGATIVE); Barbiturate Scree,Urine NEGATIVE (NEGATIVE); Benzodiazephine Screen, Urine NEGATIVE (NEGATIVE); Cannabinoid Screen, Urine NEGATIVE (NEGATIVE); Cocaine Screen, Urine NEGATIVE (NEGATIVE); Opiate Scree,Urine POSITIVE (NEGATIVE); Phencyclidine Screen, Urine NEGATIVE (NEGATIVE)
[2018-07-29] MEDS ORDERED: cefTRIAXone 1GM/50ML D5W 50 ML IV ONE ×2 (03:06→03:15)
[2018-07-29 03:50] VITALS: BP 115/50
== END 2018-07-29 05:55 | disposition home or self-care (01) ==
LOC: EDBD 20:05 → ER 20:08
DX: S39.012A Strain of muscle, fascia and tendon of lower back, initial encounter (principal); R41.82 Altered mental status, unspecified; D68.9 Coagulation defect, unspecified; D64.9 Anemia, unspecified; R07.9 Chest pain, unspecified; R79.89 Other specified abnormal findings of blood chemistry; I48.91 Unspecified atrial fibrillation; J44.9 Chronic obstructive pulmonary disease, unspecified; E11.9 Type 2 diabetes mellitus without complications; E78.5 Hyperlipidemia, unspecified; I10 Essential (primary) hypertension; I25.2 Old myocardial infarction; E07.9 Disorder of thyroid, unspecified; Z79.899 Other long term (current) drug therapy; Z79.84 Long term (current) use of oral hypoglycemic drugs; Z86.73 Personal history of transient ischemic attack (TIA), and cerebral infarction without residual deficits; Z95.0 Presence of cardiac pacemaker; Z98.61 Coronary angioplasty status; X58.XXXA Exposure to other specified factors, initial encounter; Y93.89 Activity, other specified; Y99.8 Other external cause status; Y92.89 Other specified places as the place of occurrence of the external cause
CPT/HCPCS: 36415; 70450; 71045; 72125; 72131; 80053; 80307; 80320; 81001; 84484; 85025; 85610; 85730; 93005; 96361; 96365; 96366; 96375; 96376; 99284; J0696; J2270; J2405; J7030

== ENCOUNTER 2018-08-22 23:08 | Inpatient (IN) | payer OTHER, MEDICAID ==
[~2018-08-22] VITALS: Ht 162.6 cm; Wt 66.2 kg
[2018-08-23 01:03] LABS: Basophils # (auto) 0 uL; Basophils % (auto) 0.2 % (0.0-2.0); Eosinophils # (auto) 0.4 uL; Eosinophils % (auto) 5.8 % (0.0-7.0); Hematocrit 31.5 % (36.0-46.0); Hemoglobin 10.4 g/dL (12.2-16.2); Lymphocytes % (auto) 14.8 % (10.0-50.0); Mean Corpuscular Hemoglobin 29.8 pg (28.0-32.0); Mean Corpuscular Hgb Conc. 32.9 g/dL (32.0-36.0); Mean Corpuscular Volume 90.6 fL (80.0-100.0); Monocytes # (auto) 0.5 uL; Monocytes % (auto) 7.7 % (0.0-12.0); Neutrophils % (auto) 71.5 % (37.0-80.0); Nucleated Red Blood Cells % 0.3 %; Platelet Count (auto) 254 10^3/uL (140-450); Red Blood Cells 3.47 10^6/uL (4.0-5.20); White Blood Cell 6.9 10^3/uL (4.4-10.8)
[2018-08-23 01:19] LABS: Albumin 2.3 g/dL (3.4-5.0); Calcium 7.6 mg/dL (8.5-10.1); Magnesium 1.3 mg/dL (1.6-2.6); Potassium 4.7 mmol/L (3.5-5.1)
[2018-08-23 01:26] LABS: BUN/Creatinine Ratio 17.1; Bilirubin, Total 0.2 mg/dL (0.2-1.0); Total Protein 6.2 g/dL (6.4-8.2)
[2018-08-23 01:31] LABS: Partial Thromboplastin Time 52.1 sec (23.64-32.05)
[2018-08-23 01:44] LABS: INR 4.82 (0.9-1.15)
[2018-08-23] MEDS ORDERED: SODIUM CHLORIDE 0.9% 1,000 ML IV ONE ×2 (02:45→05:00)
[2018-08-23] MEDS ORDERED: cefTRIAXone 1GM/50ML D5W 50 ML IV ONE (03:00)
[2018-08-23 03:50] LABS: Lactic Acid w/Reflex 5.3 mmol/L (0.4-2.0)
[2018-08-23] MEDS ORDERED: VANCOMYCIN 1GM/250ML 250 ML IV ONE (05:00)
[2018-08-23 06:11] LABS: Urine Bacteria NONE SEEN /hpf (None Seen); Urine Blood Negative /uL (Negative); Urine Hyaline Cast FEW /lpf (0 - 2); Urine Specific Gravity 1.021 (1.001-1.035); Urine WBC 1 /hpf (0 - 5)
[2018-08-23] MEDS ORDERED: HYDROcodone-ACET 5/325MG TAB PO PRN (06:45)
[2018-08-23] MEDS ORDERED: ACETAMINOPHEN 325 MG TAB PO PRN (06:45)
[2018-08-23] MEDS ORDERED: DEXTROSE (50%) 50ML SYRG IV PRN (06:45)
[2018-08-23] MEDS ORDERED: NITROGLYCERIN 0.4 MG SL TAB SL PRN (06:45)
[2018-08-23] MEDS ORDERED: ONDANSETRON HCL 4 MG/2 ML VIAL IV PRN (06:45)
[2018-08-23] MEDS ORDERED: LABETALOL HCL 5 MG/ML ML 20ML VIAL IV ONE (06:45)
[2018-08-23] MEDS ORDERED: TEMAZEPAM 15 MG CAP PO PRN (06:45)
[2018-08-23] MEDS ORDERED: MORPHINE SULF INJ 2 MG/ML SYRINGE 1ML IV PRN (06:45)
[2018-08-23] MEDS ORDERED: FAMOTIDINE 20 MG TAB PO SCH (10:00)
[2018-08-23] MEDS ORDERED: ASPirin 81 mg TAB PO SCH (10:00)
[2018-08-23] MEDS ORDERED: cloNIDine HCL 0.1 MG TAB PO SCH (10:00)
[2018-08-23] MEDS ORDERED: LEVETIRACETAM 500 MG TAB PO SCH (10:00)
[2018-08-23] MEDS ORDERED: METOPROLOL TARTRATE 50 MG TAB PO SCH (10:00)
[2018-08-23] MEDS ORDERED: LEVOFLOXACIN 250MG 50 ML IV SCH (10:00)
--- NOTE | 2018-08-23 10:07 | NUR ---
Telemetry admit from [facility] admitted to Telemetry unit after SBAR received. Patient oriented to Karyn Mayo, primary RN, unit, room, bed, and unit policies regarding patient care and visiting hours. Patient now on continuous telemetry monitoring, tele box #[id number] and telemetry reading on arrival to unit is SR. Patient placed on bedside oxygen, weighed by bedscale and encouraged to call if they need something. All questions and concerns addressed, patient verbalized understanding.
--- NOTE | 2018-08-23 10:25 | NUR ---
I faxed clinical information to [facility] including ER notes, H&P, labs, xrays, vitals and medication list.
--- NOTE | 2018-08-23 10:27 | NUR ---
Blood pressure Patients Bp is 80/40 on Left arm, HR 69 75/43 on the right arm , HR 63, patient is alert and oriented x4 no c/o dizziness. Will reassess VS, Will continue to monitor. Bed at lowest position and call light within reach.
[2018-08-23] MEDS ORDERED: cloNIDine HCL 0.1 MG TAB PO PRN (11:00)
--- NOTE | 2018-08-23 11:00 | NUR ---
Blood Pressure 116/64, HR 63, T 98.1, RR16. Patient comfortably resting in bed. No s/s of distress/sob noted/stated.
[2018-08-23 11:20] LABS: Lactic Acid w/Reflex 2.4 mmol/L (0.4-2.0)
[2018-08-23] MEDS ORDERED: InsuLIN REG 1unit/0.01ml Soln (100units/ml) SC SCH (12:00)
[2018-08-23] MEDS ORDERED: ACCU-CHEK COMFORT CURVE STRIP VI SCH (12:00)
--- NOTE | 2018-08-23 12:31 | NUR ---
I faxed transfer order to [facility].
[2018-08-23 13:00] VITALS: BP 116/64
--- NOTE | 2018-08-23 14:40 | NUR ---
Attempted to call patients daughter Alana at phone number on file, no answer, mailbox full. will try again later.
[2018-08-23 17:16] VITALS: BP 131/56
--- NOTE | 2018-08-23 18:00 | NUR ---
Blood Glucose Blood sugar is 77, gave patient an apple juice as requested.
--- NOTE | 2018-08-23 18:52 | NUR ---
Received a call from Jan at [facility] in [place], who provided me with the patient's transfer information. Patient has been accepted to [facility], room # 329, accepting MD is Dr. Nelson. Phone number for report is [phone]. ETA is 20:00.
--- NOTE | 2018-08-23 18:58 | NUR ---
Notified patients daughter Alana of patients transfer information. Provided her with room # , facility name and address and accepting MD.
--- NOTE | 2018-08-23 20:35 | NUR ---
Pt being trans to another hosp Order obtained for transfer of [facility] to . Report called/given to EMERALD KUMAR . Report given to EMS transport team. Medication reconciliation form completed and copy given to patient. Transported via ALS along with copied chart and imaging films/disk and all personal belongings. No distress noted on time of departure. Family notified of destination and room number, verbalized understanding. NOTE:
[2018-08-23] MEDS ORDERED: ATORVASTATIN 20 MG TAB PO SCH (22:00)
== END 2018-08-23 20:35 | disposition short-term general hospital (02) | DRG 871 ==
LOC: EDBD 23:08 → ER 23:10 → TELE 23:11 → TELE-CENTR 08-23 10:05
PROVIDERS: ADMIT Nurse Practitioner; ATTEND Internal Medicine
DX: A41.9 Sepsis, unspecified organism (principal); I21.4 Non-ST elevation (NSTEMI) myocardial infarction; R13.10 Dysphagia, unspecified; J44.9 Chronic obstructive pulmonary disease, unspecified; I48.91 Unspecified atrial fibrillation; I25.2 Old myocardial infarction; I10 Essential (primary) hypertension; I25.10 Atherosclerotic heart disease of native coronary artery without angina pectoris; R79.1 Abnormal coagulation profile; E11.9 Type 2 diabetes mellitus without complications; E78.5 Hyperlipidemia, unspecified; Z95.2 Presence of prosthetic heart valve; Z86.73 Personal history of transient ischemic attack (TIA), and cerebral infarction without residual deficits; Z95.0 Presence of cardiac pacemaker; Z95.5 Presence of coronary angioplasty implant and graft; Z80.3 Family history of malignant neoplasm of breast; Z79.899 Other long term (current) drug therapy
CPT/HCPCS: 36415; 51702; 70450; 71045; 80053; 81001; 82962; 83605; 83735; 83880; 84443; 84484; 85025; 85379; 85610; 85730; 87040; 87086; 93005; 96361; 96365; 96375; G0378; J0696